=== PATIENT | female | born 1955 | race Caucasian/White ===

== ENCOUNTER 2025-01-11 14:08 | Emergency (ER) | payer MEDICARE, MEDICAID, SELFPAY ==
[2025-01-11] VITALS (14 sets, daily range): BP systolic 117–161; BP diastolic 40–64; PULSE 56–100; RESP 19–30; TEMP 36.4; O2SAT 92–100
--- NOTE | ~2025-01-11 | XR_ITS ---
EXAMINATION: XR chest 1V portable Exam Date/Time: 01/11/2025 14:20 CDT HISTORY: cough Comparison: None. RESULT: Lines, tubes, and devices: None. Lungs and pleura: Rightward rotation. Mild diffuse reticular opacities, particularly in the right jacque ng likely accentuated by rotation. Segmental peripheral right lower lung opacification. Cardiomediastinal silhouette: Normal. Other: No acute osseous or upper abdominal finding. IMPRESSION: Segmental left basilar atelectasis versus consolidation and/or prominent pericardial fat pad. Reviewed, dictated and finalized at location K. IMPRESSION: Segmental left basilar atelectasis versus consolidation and/or prominent perica rdial fat pad.
--- NOTE | 2025-01-11 14:22 | ECG_ITS ---
Test Date: 2025-01-11 14:50:35 Measurements Intervals [place] Rate: 61 P: 25 ME: 168 QRS: -27 QRSD: 91 T: 5 QT: 426 QTc: 432 Interpretive Statements SINUS RHYTHM LOW QRS VOLTAGE IN PRECORDIAL LEADS [QRS DEFLECTION < 1.0 mV IN CHEST LEADS] INCOMPLETE RIGHT BUNDLE BRANCH BLOCK [90+ ms QRS DURATION, TERMINAL R IN V1/V2, 40+ ms S IN I/aVL/V4/V5/V6] INFERIOR MYOCARDIAL INFARCTION , PROBABLY OLD [40+ ms Q WAVE AND/OR ST/T ABNORMALITY IN II/aVF] ANTEROSEPTAL MYOCARDIAL INFARCTION , OF INDETERMINATE AGE [40+ ms Q WAVE IN V1-V4] No previous ECG available for comparison Electronically Signed On 01-12-2025 11:14:53 CDT by Karsten Henley M.D.
--- NOTE | 2025-01-11 14:22 | ED.SOB ---
HPI - SOB/Dyspnea General Chief Complaint: Shortness of Breath/Dyspnea <Chiki Negro PA-C - Last Filed: 01/11/25 23:11> Stated Complaint: cough, weakness <Chiki Negro PA-C - Last Filed: 01/11/25 23:11> Time Seen by Provider: 01/11/25 14:10 <Chiki Negro PA-C - Last Filed: 01/11/25 23:11> Source: patient <ARLINE Rodney Last Filed: 01/11/25 23:11> Mode of arrival: ambulatory <Chiki Negro PA-C - Last Filed: 01/11/25 23:11> Limitations: no limitations <Chiki Negro PA-C - Last Filed: 01/11/25 23:11> History of Present Illness HPI Narrative: This is a 70-year-old female with PMH of ESRD on hemodialysis, COPD, CVA who presents to the ED via EMS from local long-term for chief complaint of new oxygen requirement overnight. They thought the patient required 2 L of oxygen last night due to shortness of breath. They also reported that patient has had trouble keeping anything down and has had a new cough. Patient is alert oriented x3, at her baseline. She does endorse a cough but states that she is not short of breath. [facility] staff mentioned patient having vomiting, however patient denies nausea or abdominal pain. States that she is currently asymptomatic and would like to go home if possible. States that she does hemodialysis Sunday and has not missed any days, with last session on Sunday. <Chiki Negro PA-C - Last Filed: 01/11/25 23:11> Related Data Allergies/Adverse Reactions: Allergies Allergy/AdvReac Type Severity Reaction Status Date / Time baclofen Allergy Unknown Unknown Verified 01/11/25 16:36 metformin Allergy Unknown Unknown Verified 01/11/25 16:36 <Chiki Negro PA-C - Last Filed: 01/11/25 23:11> Review of Systems Review of Systems: All systems as dictated in HPI <Chiki Negro PA-C - Last Filed: 01/11/25 23:11> Exam Narrative: GENERAL: Well-appearing, well-nourished, and in no acute distress. HEAD: Normocephalic, atraumatic. EYES: PERRLA and EOMI. ENT: Nares clear, no rhinorrhea or epistaxis. Mucous membranes moist. Oropharynx without tonsillar hypertrophy exudate or other lesions. NECK: Supple. No adenopathy or masses. CHEST: No respiratory distress. Saturating 94% room air. There are coarse breath sounds heard bilaterally. HEART: Regular rate and rhythm. No murmur heard. Normal peripheral pulses. ABDOMEN: Soft, nontender, nondistended, normal active bowel sounds. MSK: Normal range of motion. No edema. SKIN: Warm, dry, no rash. NEURO: Alert and oriented x4. No focal deficits. PSYCH: Normal mood and affect. <Chiki Negro PA-C - Last Filed: 01/11/25 23:11> Course INDUSTRIAL SPECIALIST/PA Physician Supervision Patient's HPI, Exam, and MDM were reviewed and I agreed with the workup and disposition done in the emergency department by the MLP. I was available for consultation, but was not directly involved with patient's care nor did I evaluate the patient. <Kip Bradshaw MD - Last Filed: 01/12/25 21:29> Reevaluation(s) Reevaluation #1: Patient remains stable. She is doing well after the hour long breathing treatment. Breath sounds are still quite course. She has a productive cough on re-evaluation with thick sputum. <Chiki Negro PA-C - Last Filed: 01/11/25 23:11> Date: 01/11/25 <Chiki Negro PA-C - Last Filed: 01/11/25 23:11> Time: 16:30 <Chiki Negro PA-C - Last Filed: 01/11/25 23:11> Vital Signs Vital signs: Vital Signs Temperature 36.4 C 01/11/25 14:09 Pulse Rate 64 01/11/25 14:09 Respiratory Rate 22 H 01/11/25 14:09 Blood Pressure 161/63 H 01/11/25 14:09 Pulse Oximetry 94 01/11/25 14:09 Oxygen Delivery Room Air 01/11/25 14:09 Temperature 36.4 C 01/11/25 14:09 Pulse Rate 83 01/11/25 17:11 Respiratory Rate 27 H 01/11/25 17:11 Blood Pressure 133/40 L 01/11/25 16:31 Pulse Oximetry 100 01/11/25 17:11 Oxygen Delivery Room Air 01/11/25 15:24 Fraction of Inspired Oxygen 21 01/11/25 15:24 <Chiki Negro PA-C - Last Filed: 01/11/25 23:11> Vital Signs Temperature 36.4 C 01/11/25 14:09 Pulse Rate 64 01/11/25 14:09 Respiratory Rate 22 H 01/11/25 14:09 Blood Pressure 161/63 H 01/11/25 14:09 Pulse Oximetry 94 01/11/25 14:09 Oxygen Delivery Room Air 01/11/25 14:09 Temperature 36.4 C 01/11/25 14:09 Pulse Rate 83 01/11/25 17:11 Respiratory Rate 27 H 01/11/25 17:11 Blood Pressure 133/40 L 01/11/25 16:31 Pulse Oximetry 100 01/11/25 17:11 Oxygen Delivery Room Air 01/11/25 15:24 Fraction of Inspired Oxygen 21 01/11/25 15:24 <Kip Bradshaw MD - Last Filed: 01/12/25 21:29> MDM - SOB/Dyspnea MDM Narrative Medical decision making narrative: This is a 70-year-old female presents to the ED from long-term for possible hypoxia and N/V. Vitals on arrival are normal. She is saturating well on room air. She is alert oriented x3 and at her baseline. On arrival she has no medical complaints. Lab work shows normal white count on CBC. CMP shows chronic findings with ESRD. Viral swabs positive for RSV. Chest x-ray: IMPRESSION: Segmental left basilar atelectasis versus consolidation and/or prominent pericardial fat pad.. Presentation consistent with RSV and potential is COPD exacerbation. She is not hypoxic. She is feeling improved after nebulizer. Spoke with hospitalist INDUSTRIAL SPECIALIST, Isabela who does not recommend admission to the hospital. She is recommending that patient be discharged home with steroids. Patient does have stable vital signs at this time. With her medical history I think she does pose risk of needing to return so strict return precautions were given to the patient. She is understanding and agreeable with plan for discharge at this time. We will try Medrol Dosepak and antibiotics at home for COPD exacerbation. Patient will be discharged in stable condition. Supportive measures discussed and return precautions given. Patient is understanding and agreeable with plan for discharge with PCP follow-up. <Chiki Negro PA-C - Last Filed: 01/11/25 23:11> Lab Data Result diagrams: 01/11/25 14:58 01/11/25 14:58 <Chiki Negro PA-C - Last Filed: 01/11/25 23:11> Labs: Lab Results 01/11/25 Range/Units 14:58 WBC 6.9 (4.5-10.0) K/mm3 RBC 3.66 L (4.2-5.4) M/mm3 Hgb 11.8 L (12.0-15.0) g/dL Hct 36.4 L (37.0-47.0) % MCV 99.5 (80-100) fl MCH 32.2 (26-34) pg MCHC 32.4 (32-36) g/dl RDW 13.6 (11.5-14.5) % Plt Count 139 L (150-375) k/mm3 MPV 10.8 H (7.4-10.4) fl Immature Gran % (Auto) 0.3 (0-0.5) % Neut % (Auto) 45.5 (45.5-73.1) % Lymph % (Auto) 41.1 (18.3-44.2) % Republic % (Auto) 10.0 H (2.6-8.5) % Eos % (Auto) 2.5 (0-4.4) % Baso % (Auto) 0.6 (0.2-1.2) % Lymph # (Auto) 2.83 (0.9-3.2) K/mm3 Republic # (Auto) 0.7 H (0.1-0.6) K/mm3 Eos # (Auto) 0.2 (0-0.3) K/mm3 Baso # (Auto) 0.0 (0.0-0.1) K/mm3 Abs Immat Gran (auto) 0.02 (0.00-0.031) K/mm3 Absolute Neuts (auto) 3.1 (1.3-6.7) K/mm3 Absolute Nucleated RBC 0.000 (0.0-0.012) K/mm3 Nucleated RBC % 0.0 (0.0-0.2) % PT 15.9 H (11.1-14.7) Seconds INR 1.2 APTT 40.4 H (22.3-36.8) Seconds Sodium 141 (137-145) mmol/L Potassium 3.7 (3.4-5.0) mmol/L Chloride 97 L (98-107) mmol/L Carbon Dioxide 34 H (22-30) mmol/L Anion Gap 10 (4-12) mmol/L BUN 43 H (7-17) mg/dL Creatinine 5.07 H (0.7-1.0) mg/dL Estim Creat Clear Calc 10 ml/min Estimated GFR 8 L (59 - ) Glucose 162 H (65-110) mg/dL Calcium 8.8 (8.4-10.2) mg/dL Total Bilirubin 0.6 (0.2-1.3) mg/dL AST 23 (14-36) U/L ALT 19 (6-35) U/L Alkaline Phosphatase 106 (38-126) U/L Total Protein 7.0 (6.3-8.2) g/dL Albumin 3.8 (3.5-5.1) g/dL Influenza A (RT-PCR) Negative (Negative) Influenza B (RT-PCR) Negative (Negative) RSV (RT-PCR) Positive A (Negative) SARS-CoV-2 RNA (RT-PCR) Negative (Negative) <Chiki Negro PA-C - Last Filed: 01/11/25 23:11> Lab Results 01/11/25 Range/Units 14:58 WBC 6.9 (4.5-10.0) K/mm3 RBC 3.66 L (4.2-5.4) M/mm3 Hgb 11.8 L (12.0-15.0) g/dL Hct 36.4 L (37.0-47.0) % MCV 99.5 (80-100) fl MCH 32.2 (26-34) pg MCHC 32.4 (32-36) g/dl RDW 13.6 (11.5-14.5) % Plt Count 139 L (150-375) k/mm3 MPV 10.8 H (7.4-10.4) fl Immature Gran % (Auto) 0.3 (0-0.5) % Neut % (Auto) 45.5 (45.5-73.1) % Lymph % (Auto) 41.1 (18.3-44.2) % Republic % (Auto) 10.0 H (2.6-8.5) % Eos % (Auto) 2.5 (0-4.4) % Baso % (Auto) 0.6 (0.2-1.2) % Lymph # (Auto) 2.83 (0.9-3.2) K/mm3 Republic # (Auto) 0.7 H (0.1-0.6) K/mm3 Eos # (Auto) 0.2 (0-0.3) K/mm3 Baso # (Auto) 0.0 (0.0-0.1) K/mm3 Abs Immat Gran (auto) 0.02 (0.00-0.031) K/mm3 Absolute Neuts (auto) 3.1 (1.3-6.7) K/mm3 Absolute Nucleated RBC 0.000 (0.0-0.012) K/mm3 Nucleated RBC % 0.0 (0.0-0.2) % PT 15.9 H (11.1-14.7) Seconds INR 1.2 APTT 40.4 H (22.3-36.8) Seconds Sodium 141 (137-145) mmol/L Potassium 3.7 (3.4-5.0) mmol/L Chloride 97 L (98-107) mmol/L Carbon Dioxide 34 H (22-30) mmol/L Anion Gap 10 (4-12) mmol/L BUN 43 H (7-17) mg/dL Creatinine 5.07 H (0.7-1.0) mg/dL Estim Creat Clear Calc 10 ml/min Estimated GFR 8 L (59 - ) Glucose 162 H (65-110) mg/dL Calcium 8.8 (8.4-10.2) mg/dL Total Bilirubin 0.6 (0.2-1.3) mg/dL AST 23 (14-36) U/L ALT 19 (6-35) U/L Alkaline Phosphatase 106 (38-126) U/L Total Protein 7.0 (6.3-8.2) g/dL Albumin 3.8 (3.5-5.1) g/dL Influenza A (RT-PCR) Negative (Negative) Influenza B (RT-PCR) Negative (Negative) RSV (RT-PCR) Positive A (Negative) SARS-CoV-2 RNA (RT-PCR) Negative (Negative) <Kip Bradshaw MD - Last Filed: 01/12/25 21:29> Discharge Plan Discharge Clinical Impression: Respiratory syncytial virus (RSV), Asthma exacerbation in COPD <Chiki Negro PA-C - Last Filed: 01/11/25 23:11> Patient Disposition: NH Mcfp/Asst Living <Chiki Negro PA-C - Last Filed: 01/11/25 23:11> Condition: Stable <Chiki Negro PA-C - Last Filed: 01/11/25 23:11> Instructions: Antibiotic Form <Chiki Negro PA-C - Last Filed: 01/11/25 23:11> Additional Instructions: Exam today shows evidence of RSV. This is likely causing COPD exacerbation. Antibiotics and steroids are prescribed. If you have any new or worsening symptoms please return to the ER for further evaluation. <Chiki Negro PA-C - Last Filed: 01/11/25 23:11> Patient Language: Cypriot <Chiki Negro PA-C - Last Filed: 01/11/25 23:11> Prescriptions: New amoxicillin-pot clavulanate 875-125 mg tablet 1 tablet PO Q12H Qty: 14 0RF doxycycline hyclate 100 mg capsule 100 mg PO BID 7 Days Qty: 14 0RF methylprednisolone [Medrol (Christopher)] 4 mg tablets,dose pack See Rx Instructions .ROUTE .COMPLEX Qty: 21 0RF Rx Instructions: for 6 days albuterol sulfate 90 mcg/actuation aerosol powdr breath activated 2 inh inhalation Q6H PRN (Reason: shortness of breath or wheezing) Qty: 1 0RF <Chiki Negro PA-C - Last Filed: 01/11/25 23:11> Follow-up/Referrals: Ampadu,MD Jamel [Primary Care Provider] - <Chiki Negro PA-C - Last Filed: 01/11/25 23:11> Stand Alone Forms: Shelter Discharge <Chiki Negro PA-C - Last Filed: 01/11/25 23:11> Time of Disposition: 16:49 <Chiki Negro PA-C - Last Filed: 01/11/25 23:11> 16:49 <Kip Bradshaw MD - Last Filed: 01/12/25 21:29>
--- OUTSIDE RECORDS SUMMARY | 2025-01-11 14:37 | XMS_ITS | Clinical Summary ---
Author Organization [facility] Address [address] [place] [address] Phone Care Team Providers Care Solo Musician Name Role Phone Provider, None Primary Care Provider Unavailabl e Allergies No known active allergies Medications Insulin Syringe-Needle U-100 (INSULIN SYRINGE .5CC/30GX1/2 ) 30G X 1/2 0.5 ML [facility] [place] Active insulin glargine (LANTUS) 100 UNIT/ML Solution Active ACCU-CHEK SMARTVIEW Strip 6 Active ACCU-CHEK FASTCLIX LANCETS Misc 6 Active Blood Glucose Calibration (ACCU-CHEK SMARTVIEW CONTROL) Liquid 6 Active Alcohol Swabs (B-D SINGLE USE SWABS REGULAR) Pads 6 Active albuterol 108 (90 Base) MCG/ACT Aerosol Solution take by inhalation every 4 hours as needed. Active ascorbic acid 500 MG Tablet Take 500 mg by mouth daily. Active atorvastatin (LIPITOR) 40 MG Tablet Take 40 mg by mouth daily. Active Calcium Carbonate (CALCIUM 600 PO) Take by mouth. Activ e cloNIDine (CATAPRES) 0.1 MG Tablet Take 0.1 mg by mouth daily. Active apixaban (Eliquis) 2.5 MG Tablet Take 2.5 mg by mouth 2 times daily. Active gabapentin (NEURONTIN) 100 MG Capsule Take 100 mg by mouth 3 times daily. Active hydrALAZINE 25 MG Tablet Take 25 mg by mouth daily. Active loratadine (CLARITIN) 10 MG Tablet Take 10 mg by mouth daily. Active Insulin Aspart (NovoLOG) 100 UNIT/ML Solution by Subcutaneous route 3 times daily (after meals). Sliding scale Active pantoprazole (PROTONIX) 40 MG Tablet Delayed Response Take 40 mg by mouth daily. Active traMADol (ULTRAM) 50 MG Tablet Take 50 mg by mouth every 6 hours as needed. Active Zinc 50 MG Capsule Take by mouth. Activ e Active Problems Problem Noted Date Diagnosed Date Essential hypertension 01/12/2016 Pure hypercholesterolemia 01/12/2016 Osteoarthritis of multiple joints 01/12/2016 Physical exam 01/12/2016 Colon cancer screening 01/12/2016 Breast cancer screening 01/12/2016 Type 2 diabetes mellitus with diabetic neuropath y Dermatophytosis of nail Overview (09/16/2015): R HALLUX Pain in limb Immunizations Immunization Administration Dates Next Due Covid-19, Mrna, Lnp-s, Pf, 30 Mcg/0.3 Ml Dose (P fizer) 12/10/2020,11/19/2020 Influenza Vaccine,unspecified Formulation 2019 Influenza, High-dose, Quadrivalent 08/15/2022 Pneumococcal Vaccine Adult - 23 Valent 2 Td, Unspecified Formulation 11/05/2013 Zoster Vaccine, live 11/05/2013 Family History Medical History Relation Name Comments Diabetes Brother Chronic Lung Disease Daughter ARDS High Cholesterol Maternal Grandmother Alzheimer's Disease Mother Relation Name Status Comments Brother Daughter Father Maternal Grandmother Mother Social History Tobacco Use Types Packs/Day Years Used Date Smoking Tobacco: Former Cigarettes 2 30 0 02/28/1983 - 02/28/2013 Smokeless Tobacco: Never Alcohol Use Standard Drinks/Week Comments No 0 (1 standard drink = 0.6 oz pur e alcohol) Rarely Sexually Active Control Partners Comments Never Comments No Sex and Gender Information Value Date Recorded Sex Assigned at Not on file Legal Sex Female 10:34 PM CDT Gender Identity Not on file Sexual Orientation Not on file Last Filed Vital Signs Vital Sign Reading Time Taken Comments Blood Pressure 96/43 07/07/2024 3:45 PM CDT Pulse 44 07/07/2024 4:45 PM CDT Temperature 35.7 C (96.2 F) 07/07/2024 11:07 AM CDT Respiratory Rate 10 07/07/2024 3:4 5 PM CDT Oxygen Saturation 100% 07/07/2024 4:45 PM CDT Inhaled Oxygen Concentration - - Weight 91.1 kg (200 lb 13.4 oz) 024 11:07 AM CDT Height 160 cm (5' 3 ) 07/07/2024 11:07 AM CDT Body Mass Index 35.58 07/07/2024 11:07 AM CDT Plan of Treatment Health Maintenance Due Date Last Done Comments DEXA Bone Density 1955 Diabetes: Eye Exam 1955 Diabetes: Foot Exam 1955 Hepatitis C Virus (HCV) Screening 1955 TdaP Immunization 1955 Cologuard 2003 Respiratory Syncytial Virus (RSV) Immunization (Adult) (1 - Risk 60-74 years 1-dose series) 2013 Zoster Immunization (2 of 3) 12/31/2013 11/05/2013 Mammogram 08/08/2019 08/08/2018, 02/08/2016 Immunochemical Fecal Occult Blood 02/02/2023 02/02/2022 Diabetes: Hemoglobin A1c 06/02/2024 024, 06/23/2021, 11/22/2019, Additional history exists Influenza Immunization (#1) 07/06/202408/05, 09/10/2022, 08/15/2022, Additional history exists SARS-COV-2 Immunization ( season) 2024 09/06/2023, 09/06/2023, 03/16/2023, Additional history exists Diabetes: Nephropathy Screening 07/07/2025 07/07/2024, 01/12/2016 Colonoscopy 09/05/2028 09/05/2018, 02/29/2016 Colorectal Cancer Screening 09/05/2028 09/05/2018, 02/29/2016 DTaP/Tdap/Td Immunization Discontinued 11/05/2013 Lung Cancer Screening Discontinued 03/26/2022, 021 Pneumococcal Immunization (50+ years) Completed 08/08/2023, 05/11/2022, 11/04/2021, Additional history exists Pneumococcal Immunization Combined Discontinued 08/08/2023, 05/11/2022, 11/04/2021, Additional history exists Hepatitis B Immunization Aged Out No longer eligible based on patient's age to complete this topic Meningococcal Immunization (ACWY) Aged Out No longer eligible based on patient's age to complete this topic Rotavirus Immunization Aged Out No lo nger eligible based on patient's age to complete this topic Procedures Procedure Name Priority Date/Time Associated Diagnosis Comments CMP (COMPREHENSIVE METABOLIC PANEL) STAT 07/07/2024 11:05 AM CDT REENA SCREENING BILATERAL DIGITAL W CAD Routine 02/08/2016 11:32 AM CDT Breast cancer screening HEMOGLOBIN A1C W/ ESTIMATED GLUCOSE Today 01/12/2016 10:51 AM ASBESTOS SIDING INSTALLER Type 2 diabetes mellitus with diabetic neuropathy (HCC) from Last 3 Months or Most Recently Relevant to Health Maintenance Results * (ABNORMAL) Comprehensive Metabolic Panel (CMP) (07/07/2024 11:05 AM CDT) SODIUM 140 136 - 145 mmol/L 07/07/2024 11:47 AM CDT [facility] POTASSIUM 4.2 3.5 - 5.1 mmol/L 07/07/2024 11:47 AM CDT [facility] CHLORIDE 98 98 - 107 mmol/L 07/07/2024 11:47 AM CDT [facility] CO2, VENOUS 30 22 - 30 mmol/L 07/07/2024 11:47 AM CDT [facility] ANION GAP 16.2 <18.0 mmol/L 07/07/2024 11:47 AM CDT [facility] GLUCOSE 170(H) 70 - 99 mg/dL 07/07/2024 11:47 AM CDT [facility] BUN 47(H) 10 - 20 mg/dL 07/07/2024 11:47 AM CDT [facility] CREATININE, BLOOD 6.50(H) 0.60 - 1.00 mg/dL 07/07/2024 11:47 AM CDT [facility] BUN/CREATININE RATIO 7(L) 12 - 20 ratio 07/07/2024 11:47 AM CDT [facility] TOTAL PROTEIN 6.1(L) 6.3 - 8.2 g/dL 07/07/2024 11:47 AM T [facility] ALBUMIN 3.2(L) 3.5 - 5.0 g/dL 07/07/2024 11:47 AM [facility] A/G RATIO 1.1 1.0 - 2.2 07/07/2024 11:47 AM CDT [facility] CALCIUM 8.7 8.7 - 10.5 mg/dL 07/07/2024 11:47 AM T [facility] T BILI 0.4 0.2 - 1.2 mg/dL 07/07/2024 11:47 AM T [facility] SGOT (AST) 9 5 - 34 U/L 07/07/2024 11:47 AM [facility] SGPT (ALT) 9 0 - 55 U/L 07/07/2024 11:47 AM CDT [facility] ALKALINE PHOSPHATASE 91 40 - 150 U/L 07/07/2024 11:47 AM T [facility] GFR, ESTIMATED 6(L) >=60 07/07/2024 11:47 AM T [facility] Comment: Creatinine Clearance is the preferred criteria for selecting drug dose adjustments in renally impaired patients. The GFR is provided as additional pertinent clinical information. GFR is reported in mL/min/1.73 sq m. Calculation based on the Chronic Kidney Disease Epidemiology Collaboration (CKD- EPI) equation refit without adjustment for race. GFR, EST. 8(L) >=60 024 11:47 AM T [facility] GFR, EST. NONAFRICAN 6(L) >=60 07/07/2024 11:47 AM [facility] Blood Venipuncture / Unknown 07/07/2024 11:05 AM CDT 07/07/2024 11:24 AM CDT us Rolf Warren MD CHEMISTRY ORDERABLES Final Resul t [facility] [address] [place] [address] * REENA SCREENING BILATERAL DIGITAL W CAD (02/08/2016 11:32 AM CDT) Anatomical Region Laterality Modality breast Bilateral Mammography 02/08/2016 11:0 8 AM CDT Narrative 02/11/2016 5:36 PM CDT - REENA SCREENING BILATERAL DIGITAL W CAD BILATERAL DIGITAL SCREENING MAMMOGRAM WITH CAD WITH MEDIOLATERAL OBLIQUE CRANIOCAUDAL: 02/08/2016 The study was acquired using digital technology and interpreted from soft copy. Current study was also evaluated with ICAD version 7.2. CLINICAL: Routine screening. Patient has no complaints. No personal history of cancer. No family history of breast cancer. COMPARISONS: Comparison is made to exam dated: 04/08/2014 [facility]. BREAST TISSUE:There are scattered fibroglandular densities in both breasts. FINDINGS: No significant masses, calcifications, or other findings are seen in either breast. There has been no significant interval change. IMPRESSION: BI-RAD 1 NEGATIVE There is no mammographic evidence of malignancy. A 1 year screening mammogram is recommended. The patient has been or will be contacted. The patient will be entered into a reminder system with a target due date of 1 year for her next screening exam. Electronically signed by: Asael Villarreal M.D. nc/hernesto:02/11/2016 15:43:36 Ampoule Inspector: Jackie Lewis, [facility] letter sent: Normal Exam Reading location: [facility] BI-RADS: 1 Negative Procedure Note Asael Villarreal MD - 02/11/2016 - REENA SCREENING BILATERAL DIGITAL W CAD BILATERAL DIGITAL SCREENING MAMMOGRAM WITH CAD WITH MEDIOLATERAL OBLIQUE CRANIOCAUDAL: 02/08/2016 The study was acquired using digital technology and interpreted from soft copy. Current study was also evaluated with ICAD version 7.2. CLINICAL: Routine screening. Patient has no complaints. No personal history of cancer. No family history of breast cancer. COMPARISONS: Comparison is made to exam dated: 04/08/2014 [facility]. BREAST TISSUE:There are scattered fibroglandular densities in both breasts. FINDINGS: No significant masses, calcifications, or other findings are seen in either breast. There has been no significant interval change. IMPRESSION: BI-RAD 1 NEGATIVE There is no mammographic evidence of malignancy. A 1 year screening mammogram is recommended. The patient has been or will be contacted. The patient will be entered into a reminder system with a target due date of 1 year for her next screening exam. Electronically signed by: Asael zuñiga/hernesto:02/11/2016 15:43:36 Ampoule Inspector: Jackie Lewis, [facility] letter sent: Normal Exam Reading location: [facility] BI-RADS: 1 Negative German Lee MD IMG MAMMO ORDERABLES Final Re sult * (ABNORMAL) HEMOGLOBIN A1C W/ ESTIMATED GLUCOSE (01/12/2016 10:51 AM ASBESTOS SIDING INSTALLER) HGB-A1C 8.5(H) 4.4 - 6.4 % 01/12/2016 2:37 PM ASBESTOS SIDING INSTALLER [facility] Est Average Glucose 197.3 mg/dL 01/12/2016 2:37 PM ASBESTOS SIDING INSTALLER [facility] Blood specimen (specimen) Venipuncture / Unknown 01/12/2016 10:51 AM ASBESTOS SIDING INSTALLER 01/12/2016 10:55 AM ASBESTOS SIDING INSTALLER Narrative [facility] - 01/12/2016 2:37 PM ASBESTOS SIDING INSTALLER HEMOGLOBIN A1C: DIABETIC PATIENTS: WELL-CONTROLLED: 6.2 - 7.0 INTERMEDIATE WELL-CONTROLLED: 7.0 - 9.0 POORLY-CONTROLLED: >9.0 German Lee MD CHEMISTRY ORDERABLES Final Re sult [facility] [place] [address] from Last 3 Months or Most Recently Relevant to Health [place] [address] [place] [address] MEDICARE MEDICAID [place] Advance Directives Documents on File Type Date Recorded Patient Building Energy Consultant Expl anation POLST/[place] DNR 07/07/2024 3:15 PM POLST, 12/10/2023 Care Teams Solo Musician Relationship Specialty Start Date End Date Provider, None [place] PCP - General 07/07/24
--- OUTSIDE RECORDS SUMMARY | 2025-01-11 14:38 | XMS_ITS | Continuity of Care Document ---
Author Organization [facility] Address [address] [place] [address] Phone Care Team Providers Care Law Professor Name Role Phone Ciro MATHUR, Aguila Unavailable Unavailabl e Allergies, Adverse Reactions, Alerts Substance Reaction Status Criticality METFORMIN HCL Unknown Active No Information Medications Medication Instructions Dosage Effective Dates (start - stop) Status Comments ascorbic acid (vitamin C) 500 mg tablet - Active atorvastatin 40 mg tablet take 1 tablet by oral route every day 40 MG - Active clonidine HCl 0.1 mg tablet take 1 tablet by oral route 2 times every day as needed 0.1 MG - Active Eliquis 2.5 mg tablet take 1 tablet by o ral route 2 times every day 2.5 MG - Active gabapentin 100 mg capsule take 1 capsule by oral route every day 100 MG - Active hydralazine 25 mg tablet take 1 tablet by oral route 2 times every day with food 25 MG - Active Lantus U-100 Insulin 100 unit/mL subcutaneous solution inject by subcutaneous route as per insulin protocol 0.00 - Active loratadine 10 mg tablet take 1 tablet by oral route every day 10 MG - Active Novolog U-100 Insulin aspart 100 unit/mL subcutaneous solution inject by subcutaneous route per prescriber's instructions. Insulin dosing requires individualization. 0.00 - Active pantoprazole 40 mg tablet,delayed release take 1 tablet by oral route every day 40 MG - Active tramadol 50 mg tablet take 1 tablet by o ral route every 6 hours as needed as needed 50 MG - Active zinc 50 mg tablet - Active Procedures Procedure Date Intro cath dialysis circuit Mod sed same phys/qhp 5/>yrs INTRO CATH DIALYSIS CIRCUIT Radiation Exposure Documented To Be Coded Intro cath dialysis circuit Mod sed same phys/qhp 5/>yrs CONTRAST, 300/ML, PER ML INTRO CATH DIALYSIS CIRCUIT Radiation Exposure Documented To Be Coded Intro cath dialysis circuit Intro cath dialysis circuit CONTRAST, 300/ML, PER ML MOD SED BY OR SUP BY PHYSICIAN INTRO CATH DIALYSIS CIRCUIT Radiation Exposure Documented To Be Coded Intro cath dialysis circuit Mod sed same phys/qhp 5/>yrs Intro cath dialysis circuit Mod sed same phys/qhp 5/>yrs Intro cath dialysis circuit Mod sed same phys/qhp 5/>yrs MOD SED BY OR SUP BY PHYSICIAN INTRO CATH DIALYSIS CIRCUIT To Be Coded Intro cath dialysis circuit Mod sed same phys/qhp 5/>yrs REPLACE TUNNELED CV CATH FLUORO GUIDE CENTRAL VENOUS ACCESS DEVIC E Sterile Barrier Technique Followed To Be Coded Replace tunneled cv cath Fluoroguide for vein device Mod sed same phys/qhp 5/>yrs Cath impl vasc access portal Replace tunneled cv cath Fluoroguide for vein device Mod sed same phys/qhp 5/>yrs Replace tunneled cv cath Fluoroguide for vein device Mod sed same phys/qhp 5/>yrs CONTRAST, 300/ML, PER ML MOD SED BY OR SUP BY PHYSICIAN REPLACE TUNNELED CV CATH INTRO CATH SVC/IVC Sterile Barrier Technique Followed Radiation Exposure Documented To Be Coded Replace tunneled cv cath Fluoroguide for vein device Mod sed same phys/qhp 5/>yrs Cath impl vasc access portal Advance Directives Directive Yes / No Effective Date File Name No Information Encounters Encounter Description Practice Location Reason(s) For Visit Diagnoses Date Provider Providers Copied on Encounter [facility], [address] [place], [place], [id number], [place] tel:[phone] [facility] No Information 5 Tanner Aguila . [address] [place], [place], [id number] , [place]. tel: [phone] [facility], [address], [place], [id number], [place] tel:[phone] [facility] End stage renal diseaseCompression of VeinStricture of Artery 5 Tanner Aguila . [address], [place], [id number] , [place]. tel:[phone] Referring Provider: Caden Lucero, [address] [facility] [address] [facility], [place], [address]. tel:[phone] [facility], [address], [place], [id number], [place] tel:[phone] [facility] Compression of VeinStricture of ArteryEnd stage renal disease 5 Tanner Aguila . [address], [place], [id number] , [place]. tel:[phone] Referring Provider: Caden Lucero, [address] [facility] [address] [facility], [place], [address]. tel:[phone] [facility], [address] [place], [place], [id number], [place] tel:[phone] [facility] Compression of VeinEnd stage renal disease 4 Tanner Aguila . [address], [place], [id number] , [place]. tel:[phone] Referring Provider: Caden Lucero, [address] [facility] [address], [place], [address]. tel:[phone] [facility], [address] [place] [address], [id number], [place] tel:[phone] [facility] Compression of VeinEnd stage renal disease 4 Tanner Aguila . [address] [place] [address], [id number] , [place]. tel:[phone] Referring Provider: Caden Lucero, [address] [place] [address] [address] [facility], [place], [address]. tel:[phone] [facility], [address] [place] [address], [id number], tel:[phone] [facility] Compression of VeinEnd stage renal disease 4 Mireles Lilia. [address], [place], [id number] , [place]. tel: [phone] Referring Provider: Caden Lucero, [id number] [place] [address] [address] [facility], [place], [address]. tel:[phone] [facility], [address] [place] [address], [id number], tel:[phone] [facility] Compression of VeinEnd stage renal disease 4 Mireles Lilia. [address] [place] [address], [id number] , [place]. tel: [phone] Referring Provider: Caden Lucero, [id number] [place] [address], [place], [address]. tel:[phone] [facility], [address] [place] [address], [id number], [place] tel:[phone] [facility] Compression of VeinEnd stage renal disease 4 Mireles Lilia. [address] [place] [address], [id number] , [place]. tel: [phone] Referring Provider: Caden Lucero, [id number] [place] [address] [address] [facility], [place], [address]. tel:[phone] [facility], [address] [place] [address], [id number], [place] tel:[phone] [facility] Compression of VeinEnd stage renal disease 4 Mireles Lilia. [address] [place] [address], [id number] , . tel: [phone] Referring Provider: Caden Lucero, [id number] [place] [address] [address] [facility], [place], [address]. tel:[phone] [facility], [address] [place] [address], [id number], tel:[phone] [facility] 2 Mireles Lilia. [address] [place], [place], [id number] , . tel:[phone] Referring Provider: Caden Lucero, [address] [place] [address], [place], [address]. tel:[phone] [facility], [address] [place] [address], [id number], tel:[phone] [facility] 2 Mireles Lilia. [address] [place] [address], [id number] , . tel:[phone] Referring Provider: Caden Lucero, [address] [place] [address], [place], [address]. tel:[phone] [facility], [address] [place] [address], [id number], tel:[phone] [facility] Apr- [address] [place], [address], [place]. tel:[phone] Referring Provider: Caden Lucero, [address] [place] [address], [place], [address]. tel:[phone] [facility], [address] [place] [address], [id number], tel:[phone] [facility] [address] [place], [address], [place]. tel:[phone] Referring Provider: Caden Lucero, [address] [place] [address], [place], [place], [facility]. tel:[phone] As per patient privacy policy some of the clinical information may not be visible. Family History Family Member Type Diagnosis Age At Onset No Information Payers Payer name Insurance type Covered democrat ID Authorterea ana(s) Medicare [place] [id number] Medicaid [place] [id number] Social History Type Description Quantity Date Captured Comments Sex Female Smoking Status No Information Sexual Orientation Straight or heterosexual Gender Identity Female Chief Complaint And Reason For Visit No Information Reason For Referral Reason For Referral No Information Plan Of Treatment Date Type Action Status Appointment Deisy Elricia // [facility]O AVF 5 Month F/u BOOKED Appointment Deisy Elricia // AUGUSTO AVF 6 Month F/u BOOKED Future Order: Radiology Order Up per Body Flouroscopy ([id number]), Ordered on: Ordered Future Order: Radiology Order Up per Body Flouroscopy ([id number]), Ordered on: Ordered Future Order: Radiology Order Up per Body Flouroscopy ([id number]), Ordered on: Ordered Future Order: Radiology Order Up per Body Flouroscopy ([id number]), Ordered on: Ordered Future Order: Radiology Order Up per Body Flouroscopy ([id number]), Ordered on: Ordered Future Order: Radiology Order Up per Body Flouroscopy ([id number]), Ordered on: Ordered History Of Present Illness Encounter Date Complaint History Of Prese nt Illness No Information Functional Status Date Functional Assessmen t No Information Instructions Date Instruction Additional Infor mation No Information Assessments Type Assessment Date No Information Patient Care Teams Name Effective Dates (start - stop) Status Members No Information
--- OUTSIDE RECORDS SUMMARY | 2025-01-11 14:38 | XMS_ITS | Encounter Summary ---
Author Organization [facility] Healthcare Address [address] [place] [address] Care Team Providers Care Supervisor Cigar Processing Name Role Phone Jose Juan Madrigal MD Primary Care Provider [phone] Pedro Monroe MD Unavailable [phone] Tonya Barahona RN Unavailable [phone] Caden Nuñez MD Unavailable [phone] Luis Barney MD Unavailable [phone] Encounter Details Date Type Department Care Team (Late st Contact Info) Description 04/24/2019 Telephone [facility] Physical Medicine and Rehabilitation [address] [place] [address] Brian Bright RN Social History Tobacco Use Types Packs/Day Years Used Date Smoking Tobacco: Every Day Cigarettes 3 25 Started: 02/16/1989; Last attempted to quit: 02/16/2014 Smokeless Tobacco: Never Comments:DOES VAPE 6MG CARTR IDGE Alcohol Use Standard Drinks/Week Comments Not Currently 0 (1 standard drink = 0.6 oz pur e alcohol) Comments No Sex and Gender Information Value Date Recorded Sex Assigned at Not on file Legal Sex Female 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 Gender Identity Female 01/17/2024 1:34 PM CDT Sexual Orientation Straight 01/17/2024 1: 34 PM CDT documented as of this encounter Last Filed Vital Signs Vital Sign Reading Time Taken Comments Blood Pressure - - Pulse - - Temperature - - Respiratory Rate - - Oxygen Saturation - - Inhaled Oxygen Concentration - - Weight 91.2 kg (201 lb) 04/24/2019 11:17 AM CDT Height 160 cm (5' 3 ) 04/24/2019 11:17 AM CDT Body Mass Index 35.61 04/24/2019 11:17 AM CDT documented in this encounter Miscellaneous Notes * Pre-Admission Screening - Brian Bright RN - 04/24/2019 12:18 PM CDT [facility] Physical Medicine and Rehabilitation Preadmission Screening Reason for Consult: Nora El is a 64 y.o. female with a medical diagnosis of Slurred Speech and Rehab Diagnosis: CVA--Left Amanda whose probable impairment code for inpatient rehabilitation is: Impairment Code Group: Stroke Stroke: Right Body Involvement (Left Brain) The following information was gathered for consideration and maintenance in the medical record to substantiate medical necessity for IRF level of care. Patient is currently at [facility]; Room 2626-1;phone# . The patient is being referred and recommended by Dr OSBORN to be assessed both medically and functionally in regard to their premorbid functional capacity to determine whether they can benefit from a rehabilitation level of care offered by our facility. The following information is regarding the medical complexity and clinical risk factors that need to be considered for the appropriate management of the patient's care and recovery. RECOMMENDATIONS / PLAN: Goals for admission:To get strong enough to get back home and care for herself as much as possible. Likelihood of reaching these goals: Medical Prognosis: Medical Prognosis appears good to recover based on co- morbidites and on going medical issues such as dyphagia, uncontorlled blood pressures and diabetes Functional Prognosis: Fucntional Prognosis appears good to recover to a minimum to contact guard assist of self care management and mobility at the wheelchair level Therapies required to achieve goals:The patient will benefit from integrated coordination of care from the following interdisciplinary services: Medical Supervision, 24 hours Rehabilitation Nursing, Physical Therapy, Occupational Therapy, Case Management, Speech Therapy, Therapeutic Recreation, Respiratory Therapy, Machine Loader, Social Work Frequency and duration of therapies expect to be:Expected intensity and frequency of participation in the interdisciplinary rehab program is: 3 hours per day except Sunday. Expected intensity and frequency of Physical Therapy (PT): 1.5 hours per day over 5-7 days for the duration of length of stay Expected intensity and frequency of Occupational Therapy (OT): 1.5 hours per day over 5-7 days per week for the duration of length of stay Expected intensity and frequency of Speech Therapy (OIL AND GAS RECRUITER): 1 hour per day per day over 5-7 days per week for the duration of length of stay Expected level of improvement is: very good Expected level of improvement at discharge is: CGA Strengths for achieving goals: Strengths: Able to tolerate intensive inpatient rehab program, Good premorbid medical status, Good family/social support, Living in the community premorbidly, Motivated, Good premorbid functional status Barriers to achieving goals: Barriers: Comorbidities, Ability to acquire knowledge(Ongoing Medical Issues Such As: Flaccid RightDominent Side; Inability to swallow requiring an alternative method of nutrition with a PEG tube; Uncontorlled Diabetes, Uncontrolled Hypertension; ACute Renal Failure, Hyponatremia) Expected length of stay: Estimated Length of Stay: 21 days When medically stable, anticipated disposition: Anticipated destination post discharge from inpatient rehab: community discharge with assist Anticipated needed services post discharge from inpatient rehab: home health nursing, home health therapy Therapy needed: Home health aide, PT - home health, OT - home health, OIL AND GAS RECRUITER - home health, Nurse visit Information regarding the rehab process including risks/benefits and financial issues were discussed with the patient and/or family and they have agreed to accept rehabilitation risks and benefits. Payor Source: Primary: [employer]; policy# [id number]; phone# ; auth # [id number] Case discussed with Dr Pedro Monroe on 04/23/2019 1400 and updated 04/24/2019 at 1200. Appropriateness for admission to the Inpatient Rehab Facility: yes The Pre-admission screen is an assessment of the patient's medical and functional status and has been reviewed by a rehab physician. It has been determined by the rehab physician that this patient will benefit from a comprehensive inpatient rehab admission to meet the identified goals and manage ongoing medical issues. The physician will provide documentation that supports an inpatient rehab admission including real and potential complications for which the patient is at risk with a plan to manage and avoid those risks HISTORY: Past Medical History: Past Medical History: Diagnosis Date ??? Cataracts, bilateral H&P ??? Colon polyp ??? Diabetes mellitus ([facility]) Diabetes mellitus; Comments: [facility] 04/06/2016 - ??? Hypercholesterolemia High cholesterol; Comments: [facility] 04/06/2016 - ??? Hypertension Hypertension ??? Type 2 diabetes mellitus (CMS/HCC) Past Surgical History: Past Surgical History: Procedure Laterality Date ??? CATARACT EXTRACTION Right Cataract extraction ??? COLONOSCOPY 02/29/2016 ??? OTHER SURGICAL HISTORY TUBAL LIGATION ??? POLYPECTOMY ??? TUBAL LIGATION H&P Social History: Social History Socioeconomic History ??? Marital status: Spouse name: None ??? Number of children: None ??? Years of education: None ??? Highest education level: None Occupational History ??? None Social Needs ??? Financial resource strain: None ??? Food insecurity: Worry: None Inability: None ??? Transportation needs: Medical: None Non-medical: None Tobacco Use ??? Smoking status: Current Every Day Smoker Packs/day: 3.00 Years: 25.00 Pack years: 75.00 Last attempt to quit: 02/16/2014 Years since quittin.1 ??? Smokeless tobacco: Never Used ??? Tobacco comment: DOES VAPE 6MG CARTRIDGE Substance and Sexual Activity ??? Alcohol use: Not Currently ??? Drug use: No ??? Sexual activity: Defer control/protection: Tubal Ligation Lifestyle ??? Physical activity: Days per week: None Minutes per session: None ??? Stress: None Relationships ??? Social connections: Talks on phone: None Gets together: None Attends confucianist service: None Active member of club or organization: None Attends meetings of clubs or organizations: None Relationship status: None ??? Intimate partner violence: Fear of current or ex partner: None Emotionally abused: None Physically abused: None Forced sexual activity: None Other Topics Concern ??? None Social History Narrative ??? None Patient's Preferred Language: Croatian Cultural Requests During Hospitalization: NONE Acute Conditions/Co-morbidities requiring Acute Rehab: Anemia, Increased WBC, IV antibiotics, Urinary tract infection, Acute renal failure, Pneumonia and/or other respiratory issues, Uncontrolled HTN, Uncontrolled DM, Altered mental status, Other (comment), Electrolyte imbalance, Uncontrolled pain,Neurological disorder/exacerbation(H/H 10.3/30.5; WBC 14.8-8.7; IVPB Zosyn & Zithromax; BUN/CREAT 48/2.30 2nd to Contrast; Chest CT: Pulmonary Nodule; On Norvasc, lasix,; On Lantus, Lispro [id number]; CVA Left Amanda- right hem; Dysphagia-PEG tube w TF; Incontinent; Urine turbid in color; ) HPI: Patient was admitted to [facility] on 04/17/2019 with Right Sided Weakness: Dr Mehta H&P: SUBJECTIVE: Right-sided weakness HPI: Patient is a 64 y.o. female with a PMHx significant for hypertension, diabetes presents to theED with a chief complaint of right-sided weakness. The weakness was gradually getting worse she called the EMS and came to the ER. The ER tele neurology evaluated the patient patient was out of window for tPA. Patient had a CT head and CT angiogram which showed no acute abnormality. patient was admitted for further management.Neurology was consulted. Patient and a NIHSS score at the time of admission was [address] ER[address] When Dr Mehta saw the patient in the morning, patient has a slurring ofspeech with facial droop and right-sided weakness. ASSESSMENT/PLAN: 1. CVA with right-sided weakness : Patient on aspirin and statin. MRI of the brain pending. PT and OT was consulted .speech was consulted. Neurology was consulted awaiting for recommendations. Will get echo. Will Get social work assistant for discharge planning patient might need rehab 2. Hypertension uncontrolled: Closely monitor the blood pressure the patient is on lisinopril 3. Diabetes HbA1c is 8.1: Sugars closely will place the patient on Lantus 10 units at nighttime janeth sliding scale 4. Failed bedside swallow evaluation: Barium swallow failed . Patient might need an NG tube. 04/17/2019: Head CT: IMPRESSION: 1. NO ACUTE INTRACRANIAL ABNORMALITY. 2. MILD SMALL VESSEL MICROVASCULAR ISCHEMIC DISEASE. 3. SMALL OLD APPEARING BILATERAL THALAMIC INFARCTS. 04/18/2019: Modified BArium Swallow: IMPRESSION: 1. Impaired oral phase. 2. Slippage of pudding bolus down base of tongue before triggering swallow. 3. Silent aspiration of a fairly large residual bolus of pudding mixture into trachea immediately prior to ingesting nectar consistency liquid. 4. Small amount of silent aspiration of the nectar consistency liquid. 04/18/2019: Renal Ultrasound: IMPRESSION: NORMAL RENAL ULTRASOUND 04/18/2019: Abdominal Radiography: IMPRESSION: 1. NG tube tip in distal stomach. 2. Nonspecific bowel gas pattern. 3. Residual contrast in kidneys and urinary bladder from CT yesterday. 04/18/2019: Dr Osborn consulted for Neurology: History of present illness: Ms El presents for evaluation. She has been referred by Dr. Jay, ER physician for assessment. She is a very pleasant 64-year-old female with a history of diabetes and hypertension and hypercholesterolemia, presented to the emergency room yesterday complaining of right sided weakness and slurred speech which began at noon on 04/17/2019. Patient states she was able to do laundry after it began but symptoms seem to worse. Patient denied any falls or trauma. Patient also denied any pain-no headache chest pain or abdominal pain. Patient did night any vision changes. Patient denies any prior history of stroke. No recent surgeries.Blood sugars 167 per EMS. Patient came to the emergency room at 4-1/2 hour ailin. She isoutside the tPA window. CT angiography was undertaken it did not reveal any large vessel occlusion the patient subsequently admitted. Patient denies any headaches. Has difficulty swallowing and speaking. No symptoms of weakness on the left side. Assessment/plan 1. Right hemiparesis: Ms. El is a 64-year-old with with prior history of diabetes, hypertension, hyperlipidemia who presents with sudden onset neurological changes characterized by right-sided weakness and slurring of speech. Physical findings revealed evidence of right hemiparesis with signific ant dysarthria. No sensory loss noted. Dense hemiplegia was noted. Suspect ischemic stroke . Has been started on aspirin therapy. Swallowing evaluation. Complete stroke workup including echocardiogram. Recommend physical therapy and occupational therapy patient will require inpatient rehabilitationpost discharge. Optimize diabetes and hypertension. 2. Hyperlipidemia: Continue statin therapy. 3. Pulmonary nodule: Chronic. Was seen in the CT chest done on 08/22 as well. Benign 04/19/2019: Dr Ricki Nuñez was consulted for Nephrology: ARF due to contrast nephropathy; CKD3 dueto DM/HTN(likely predisposed for above) 04/19/2019: Cardiac ECHO: Conclusions: Moderate concentric left ventricular hypertrophy. Normal global left ventricular systolic function. Diastolic dysfunction is present. Ejection fraction is visually estimated at 60 to 65 %. Normal atrial septum. Saline contrast study performed without evidence of right to left shunt. Normal structure of the mitral valve. Trivial regurgitation of the mitral valve. Normal structure of the aortic valve. Normal structure of the tricuspid valve. Trivial regurgitation in the tricuspid valve. 04/20/2019: Dr Mehta Progress Note: Subjective Right-sided weakness present, patient failed aswallow evaluation. Patient pulled her NG tube last night, do NG tube was placed. Will ask the speech to re-evaluate the patient tomorrow 04/21/2019: Dr Kendall consulted for Gastroenterology; PEG tube Placement: GI PLAN: 1. Upper endoscopy with placement of feeding tube 04/22/2019. 2. Discussed the procedure with the family and the patient home seems to be aware and understand the procedure and agree with to proceed. 3. Patient is on Zosyn and this will serve as prophylaxis from infection 4. I will discontinue aspirin to minimize risk of bleeding but continue Lovenox at night 04/22/2019: Providers: Ben Kendall M.D.Impression: - Normal examined duodenum. - Normal esophagus. - Normal stomach. - An externally removable PEG placement was successfully completed. - No specimens collected. Recommendation: - Please follow the post-PEG recommendations. - Start PEG tube feedings tomorrow morning. - May use tube in 4 hours for medications only. - Keep head of bed elevated 30 degrees at all times. 04/23/2019: Chest X-Ray: IMPRESSION: MINIMAL RIGHT PLEURAL EFFUSION WITH INCREASING RIGHT MIDDLE AND RIGHT LOWER LOBE ATELECTASIS AND INFILTRATE. 04/23/2019: Dr Puente-Hospitalist Progress Note: Status post PEG tube placement; No events overnight ;Tele monitor . No atrial fibrillation 04/23/2019: Dr Nuñez Progress Note: Chief complaint of ARF. Interval History: biochemical improvement Assessment/Plan; Principal Problem: Cerebrovascular accident (CVA) (CMS/HCC); First negative delta creatinine. Likely recovery 04/23/2019: Tube Feeding: Recommendations: Recommend modify TF to Nepro at 46 ml/hour continuous goal rate, with 200 ml flushes q 4 hours, for total of 2000 kcals per day, 90 g pro, 2000 ml total H2O/24 hours. Patient has been working with Physical Therapy, Occupational Therapy and Speech Language Pathology.Per [facility] Death Surveys Coder patient has been up in the chair for several hours each day, but requiring a eliel lift to get back to bed. Per [facility] Therapy Discipline Evaluations patient can tolerate three to four hours of therapy per day. Reviewed case with Hot Dip Plater and was given the approval to send clinical information to Insurance Provider, Trudi. Date of Onset: Date of Onset: 04/17/19 Date Admitted to Acute: Date admitted to acute: 04/17/19 Precautions/Restrictions: Aspiration, Seizure, Falls, Hypertension Weight Bearing Precautions: Right sided Flaccid; Full weight bearing; requires a eliel lift for transfers [place] Suicide Severity Rating Scale: 1. Wish to be : No 2. Suicidal Thoughts: No 6. Suicide Behavior Question: No Allergies: Allergies Allergen Reactions ??? Metformin Diarrhea Code Status: Full Code Vitals: There were no vitals filed for this visit. Current Systems Summary: Height: 160 cm (5' 3 ) Weight: 91.2 kg (201 lb) Diet: NPO--Nepro Continuous Tube Feeding at 46ml/hour and 200 ml water flushes every 4 hours Bladder: Incontinent, Wyatt cath(PAtient was incontinent had a purewick olesya has a wyatt) Bladder-Number of accidents last 4 days: 8 Bowel: Continent, Incontinent Bowel-Number of accidents last 4 days: 2 Date of last BM: 04/23/19 Integumentary: Jenaro Scale 16--New PEG placement with Abdominal incision; No Documented pressure wound Cardiopulmonary: Oxygen via nasal cannula Dialysis: N/A Pain: Patient has pain that is not controlled on current regimen IVs: Peripheral IV Current meds: Current Facility-Administered Medications on File Prior to Visit Medication Dose Route Frequency Provider Last Rate Last Dose ??? acetaminophen (TYLENOL) 32 mg/mL oral suspension 640 mg 640 mg feeding tube Q6H PRN Ben Kendall MD 640 mg at 04/21/192022 ??? amLODIPine (NORVASC) tablet 10 mg 10 mg feeding tube Daily Farrukh Puente MD 10 mg at 04/24/19 0810 ??? aspirin chewable tablet 324 mg 324 mg feeding tube Daily Ben Kendall MD 324 mg at 04/24/19 0811 ??? azithromycin (ZITHROMAX) 500 mg in sodium chloride 0.9% 250 mL IVPB 500 mg intravenous Q24H Ben Kendall MD 500 mg at 04/23/19 1638 ??? dextrose gel in packet 15 g 15 g oral Q15 Min PRN Ben Kendall MD Or ??? dextrose (D10W) 10% bolus 250 mL 250 mL intravenous Q15 Min PRN Ben Kendall MD ??? enoxaparin (LOVENOX) syringe 30 mg 30 mg subcutaneous Daily-2100 Ben Kendall MD 30 mg at 04/23/19 2017 ??? [COMPLETED] furosemide (LASIX) 10 mg/mL injection 40 mg 40 mg intravenous Once Farrukh Puente MD 40 mg at 04/24/19 1108 ??? glucagon injection 1 mg 1 mg intramuscular Q30 Min PRN Ben Kendall MD ??? insulin glargine (LANTUS,BASAGLAR) pen injection 30 Units 30 Units subcutaneous Nightly Ben Kendall MD 30 Units at 04/23/192016 ??? insulin lispro (HumaLOG) pen injection 1-5 Units 1-5 Units subcutaneous Q6H [facility] Ben Kendall MD 3 Units at 04/24/19 0619 ??? insulin lispro (HumaLOG) pen injection 7 Units 7 Units subcutaneous TID with meals Ben Kendall MD 7 Units at 04/24/19 0812 ??? ipratropium-albuterol (DUO-NEB) 0.5-2.5 mg/3 mL nebulizer solution 3 mL 3 mL nebulization Q6H DEVON (RT) Joseph Bennett, WANDA 3 mL at 04/24/19 0742 ??? [] metoclopramide (REGLAN) tablet 5 mg 5 mg feeding tube TID Ben Kendall MD 5 mgat 04/23/19 0832 nystatin 100,000 unit/mL oral suspension 500,000 Units 500,000 Units swish & spit QID Farrukh Puente MD 500,000 Units at 04/24/19 0811 ??? ondansetron (ZOFRAN) injection 4 mg 4 mg intravenous Q30 Min PRN Ben Kendall MD ??? piperacillin-tazobactam (ZOSYN) 2.25 g in sodium chloride 0.9% 50 mL IVPB 2.25 g intravenous Q8H DEVON Ben Kendall MD 120 mL/hr at 04/24/19 0506 2.25 g at 04/24/19 0506 ??? rosuvastatin (CRESTOR) tablet 10 mg 10 mg feeding tube Nightly Farrukh Puente MD 10 mg at ??? sodium chloride 0.9% flush 0.5-20 mL 0.5-20 mL intra-catheter PRN Ben Kendall MD ??? sodium chloride 0.9% flush 0.5-20 mL 0.5-20 mL intra-catheter Q8H Farrukh Puente MD 10 mL at 04/24/19 050 Current Outpatient Medications on File Prior to Visit Medication Sig Dispense Refill ??? alcohol swabs (BD ALCOHOL SWABS) pads, medicated Used with lancets to test glucose levels once daily ??? amitriptyline (ELAVIL) 25 mg tablet take 1 tablet by oral route every day at bedtime (Patient not taking: Reported on 07/30/2018 ) 0 0 ??? ascorbic acid, vitamin C, (VITAMIN C) 500 mg capsule, extended release CR capsule take 1 by oral route everyday (Patient not taking: Reported on 07/30/2018 ) 0 0 ??? b complex vitamins tablet (Patient not taking: Reported on 07/30/2018) 0 0 ??? blood glucose diagnostic (ACCU-CHEK SMARTVIEW TEST STRIP) strip Use to test blood glucose once daily ??? blood glucose diagnostic (glucose blood) strip Use as directed to check blood sugars 100 each 11 ??? gabapentin (NEURONTIN) 100 mg capsule Take 1 capsule (100 mg total) by mouth 3 (three) times a day. 90 capsule 5 ??? glimepiride (AMARYL) 4 mg tablet Take 1 tablet (4 mg total) by mouth daily before breakfast. 90tablet 3 ??? glimepiride (AMARYL) 4 mg tablet Take 4 mg by mouth daily before breakfast ??? insulin glargine (LANTUS,BASAGLAR) 100 unit/mL (3 mL) insulin pen Inject 28 Units under the skin nightly ??? insulin syringe-needle U-100 1/2 mL 30 gauge syringe USE TO INJECT 1 TO 4 TIMES DAILY DIRECTED 100 each 1 ??? lancets misc Use to test blood glucose once daily ??? lisinopril (PRINIVIL,ZESTRIL) 5 mg tablet TAKE 1 TABLET EVERY DAY 90 tablet 3 ??? multivitamin capsule Take 1 capsule by mouth daily. ??? pen needle, diabetic 32 gauge x 1/4 needle Use as directed with insulin pen needle. 100 each 3 ??? rosuvastatin (CRESTOR) 20 mg tablet TAKE 1 TABLET EVERY DAY 90 tablet 3 Substance abuse history: Nora El reports that she has been smoking. She has a 75.00 pack-year smoking history. Shehas never used smokeless tobacco. She reports that she drank alcohol. She reports that she does notuse drugs. Diagnostic Tests: Recent Results (from the past 72 hour(s)) POCT glucose Collection Time: 04/21/19 6:06 PM Result Value Ref Range Glucose, POC, bld 221 (H) 71 - 98 mg/dL POCT glucose Collection Time: 04/22/19 12:15 AM Result Value Ref Range Glucose, POC, bld 330 (Critical) 71 - 98 mg/dL Renal function panel Collection Time: 04/22/19 3:43 AM Result Value Ref Range Sodium 136 135 - 145 mmol/L Potassium, pl 3.9 3.3 - 4.9 mmol/L Chloride 92 (L) 97 - 110 mmol/L CO2 32 22 - 32 mmol/L Anion Gap 12 2 - 15 mmol/L BUN 47 (H) 8 - 25 mg/dL Creatinine 2.55 (H) 0.60 - 1.10 mg/dL Glucose 258 (H) 70 - 199 mg/dL Calcium 8.5 8.5 - 10.3 mg/dL Phosphorus, pl 4.7 (H) 2.3 - 4.5 mg/dL Albumin 2.8 (L) 3.5 - 5.0 g/dL eGFR Collection Time: 04/22/19 3:43 AM Result Value Ref Range GFR 19 mL/min/1.73 m2 POCT glucose Collection Time: 04/22/19 5:53 AM Result Value Ref Range Glucose, POC, bld 235 (H) 71 - 98 mg/dL POCT glucose Collection Time: 04/22/19 11:29 AM Result Value Ref Range Glucose, POC, bld 234 (H) 71 - 98 mg/dL Sodium, urine, random Collection Time: 04/22/19 12:33 PM Result Value Ref Range Sodium, ur 84 mmol/L Urinalysis reflex to microscopic and culture Urine Collection Time: 04/22/19 12:33 PM Result Value Ref Range Color, ur Yellow Yellow Clarity, ur Turbid (A) Clear Specific gravity, ur 1.002 (L) 1.010 - 1.025 pH, urine 6.0 Protein, ur ql Negative Negative Glucose, ur ql Negative Negative Ketones, ur Negative Negative Bilirubin, ur Negative Negative Blood, ur Negative Negative Urobilinogen, ur 0.2 mg/dL Nitrite, ur Negative Negative Leukocyte esterase, ur Negative Negative POCT glucose Collection Time: 04/22/19 5:11 PM Result Value Ref Range Glucose, POC, bld 200 (H) 71 - 98 mg/dL POCT glucose Collection Time: 04/22/19 11:55 PM Result Value Ref Range Glucose, POC, bld 118 (H) 71 - 98 mg/dL POCT glucose Collection Time: 04/23/19 2:37 AM Result Value Ref Range Glucose, POC, bld 152 (H) 71 - 98 mg/dL Basic metabolic panel Collection Time: 04/23/19 3:35 AM Result Value Ref Range Sodium 138 135 - 145 mmol/L Potassium, pl 3.8 3.3 - 4.9 mmol/L Chloride 97 97 - 110 mmol/L CO2 30 22 - 32 mmol/L Anion Gap 12 2 - 15 mmol/L BUN 44 (H) 8 - 25 mg/dL Creatinine 2.42 (H) 0.60 - 1.10 mg/dL Glucose 180 70 - 199 mg/dL Calcium 8.4 (L) 8.5 - 10.3 mg/dL CBC with auto differential Collection Time: 04/23/19 3:35 AM Result Value Ref Range WBC 10.9 (H) 3.8 - 9.9 K/cumm Hgb 10.7 (L) 11.9 - 15.5 g/dL Hct 31.3 (L) 35.6 - 45.5 % Plt 195 150 - 400 K/cumm MPV 11.2 9.1 - 12.3 fL RBC 3.64 (L) 3.90 - 5.20 M/cumm MCV 86.0 81.3 - 96.4 fL MCH 29.4 27.1 - 33.3 pg MCHC 34.2 32.3 - 35.7 g/dL RDW CV 12.6 11.1 - 14.9 % RDW SD 39.6 35.7 - 48.1 fL NRBC Abs 0.00 0.00 - 0.01 K/cumm Differential, auto Collection Time: 04/23/19 3:35 AM Result Value Ref Range Neutrophil absolute 7.5 (H) 1.7 - 6.5 K/cumm Immature granulocyte absolute 0.0 0.0 - 0.1 K/cumm Lymphocytes absolute 2.2 0.8 - 3.3 K/cumm Monocyte absolute 0.8 0.2 - 0.8 K/cumm Eosinophils absolute 0.3 0.0 - 0.5 K/cumm Basophils, abs 0.1 0.0 - 0.1 K/cumm Neutrophils 68.8 % Immature granulocytes 0.3 % Lymphocytes 19.7 % Monocytes 7.5 % Eosinophils 3.1 % Basophils 0.6 % eGFR Collection Time: 04/23/19 3:35 AM Result Value Ref Range GFR 20 mL/min/1.73 m2 POCT glucose Collection Time: 04/23/19 6:00 AM Result Value Ref Range Glucose, POC, bld 235 (H) 71 - 98 mg/dL POCT glucose Collection Time: 04/23/19 11:53 AM Result Value Ref Range Glucose, POC, bld 285 (H) 71 - 98 mg/dL POCT glucose Collection Time: 04/23/19 5:56 PM Result Value Ref Range Glucose, POC, bld 273 (H) 71 - 98 mg/dL POCT glucose Collection Time: 04/24/19 12:02 AM Result Value Ref Range Glucose, POC, bld 258 (H) 71 - 98 mg/dL Basic metabolic panel Collection Time: 04/24/19 5:14 AM Result Value Ref Range Sodium 139 135 - 145 mmol/L Potassium, pl 3.7 3.3 - 4.9 mmol/L Chloride 95 (L) 97 - 110 mmol/L CO2 31 22 - 32 mmol/L Anion Gap 13 2 - 15 mmol/L BUN 48 (H) 8 - 25 mg/dL Creatinine 2.30 (H) 0.60 - 1.10 mg/dL Glucose 223 (H) 70 - 199 mg/dL Calcium 8.6 8.5 - 10.3 mg/dL CBC with auto differential Collection Time: 04/24/19 5:14 AM Result Value Ref Range WBC 8.7 3.8 - 9.9 K/cumm Hgb 10.3 (L) 11.9 - 15.5 g/dL Hct 30.5 (L) 35.6 - 45.5 % Plt 211 150 - 400 K/cumm MPV 11.0 9.1 - 12.3 fL RBC 3.55 (L) 3.90 - 5.20 M/cumm MCV 85.9 81.3 - 96.4 fL MCH 29.0 27.1 - 33.3 pg MCHC 33.8 32.3 - 35.7 g/dL RDW CV 12.2 11.1 - 14.9 % RDW SD 38.5 35.7 - 48.1 fL NRBC Abs 0.00 0.00 - 0.01 K/cumm Differential, auto Collection Time: 04/24/19 5:14 AM Result Value Ref Range Neutrophil absolute 5.3 1.7 - 6.5 K/cumm Immature granulocyte absolute 0.0 0.0 - 0.1 K/cumm Lymphocytes absolute 2.1 0.8 - 3.3 K/cumm Monocyte absolute 0.9 (H) 0.2 - 0.8 K/cumm Eosinophils absolute 0.3 0.0 - 0.5 K/cumm Basophils, abs 0.1 0.0 - 0.1 K/cumm Neutrophils 61.0 % Immature granulocytes 0.2 % Lymphocytes 24.3 % Monocytes 10.5 % Eosinophils 3.2 % Basophils 0.8 % eGFR Collection Time: 04/24/19 5:14 AM Result Value Ref Range GFR 21 mL/min/1.73 m2 POCT glucose Collection Time: 04/24/19 6:06 AM Result Value Ref Range Glucose, POC, bld 224 (H) 71 - 98 mg/dL Prior Functional Status: Mobility status/Ambulation aid/assistive devices: Transfers: Independent Walking: Independent Walking assistive devices used: None Wheelchair mobility: Not applicable Stair negotiation: Independent Falls: Has the patient had 2 or more falls in the past year or any fall with injury in the past year?: Unknown Activities of daily living (ADL) status/ Assistive devices used for ADLs: Dressing: Independent Bathing: Independent Toileting: Independent Bladder: Continent Bowel: Continent Driving: No Functional limitations: Hearing: Normal Sensory Vision: Normal Cognition: Intact Communication: Normal Nutrition: Normal Occupation: Disabled Pre-Hospital Vocational Status: Retired for disability;Retired for age Home Setting: One story home Prehospital Lives With: Adult children (Daughter Migdalia; Yessica other daughter can be of assistance at discharge per Death Surveys Coder note) Exterior Home Access: Steps;No rails (2 Steps to Enter) Interior Home Access: No steps (Not Documented) Current functional status: ADL: OT Functional Mobility: Evaluation on 04/18/2019: Static and Dynamic Sitting Close Supervision; Static Standing Moderate Assist of 2; Supine to Edge of bed Moderate assist of 2; Sit to stand Maxium Assist of 2; RUE-Flaccid; LUE-WFL; Treatment Note 04/22/2019: Static Sitting Close supervision min edge of bed; Dyanmic Sitting Close Supervision; Supine to Edge of bed mod to max of 2; Bed to chair with arms was dependent using eliel lift (Evaluation on 04/18/2019: Treatment Note 04/22/2019) (04/24/2019 11:29 AM) OT Self Care: Evaluation on 04/18/2019: Lower Extremity Dressing-Dependent for Don/Doff both right and left socks; Treatment Note 04/22/2019: Grooming-Maximum Assist; Total Assist to don/doff socks (Evaluation on 04/18/2019: Treatment Note 04/22/2019) (04/24/2019 11:29 AM) OT Cognition: Evaluation on 04/18/2019: Alert and ORiented x4; Follows all commands without diffilculty: Treatment NOte: 04/22/2019: Follows one step commands without difficulty (Evaluation on 04/18/2019: Treatment Note 04/22/2019) (04/24/2019 11:29 AM) OT Communication: Evaluation on 04/18/2019: able to make wants and needs known: Treatment Note 04/22/2019: Difficulty speaking; easy to engage (Evaluation on 04/18/2019: Treatment Note 04/22/2019) (04/24/2019 11:29 AM) Mobility/Transfers: PT Functional Mobility: Evaluation on 04/18/2019: Denies pain, good awareness of errors made; severe deficits RLE; Static Sitting 5 minutes distant supervision; Dynamic sitting-fowrard Lean close supervision; Static Standing Moderate Assist; Supin to and from Edge of bed moderate assist of 2; Max assist to scoot of 2; Sit to stand Max of 1+ Min of 1; Right toe and ankle is flaccid; Treatment NOte: 04/23/2019: Denies pain; Supin to and from Edge of bed is mod/max assist of 2; Sit to stand and stand to sit Dependent was unable to come to a complete stand, was eliel lifted to chair; Per Death Surveys Coder patient has been sitting up in the chiar for several hours a day, requiring eliel lift to return to bed; (Evaluation on 04/18/2019: Treatment NOte: 04/23/2019: ) (04/24/2019 11:29 AM) Cognition/Communication/Swallowing: [employer] RECRUITER Cognition: Per OT Evaluation and Treament: Evaluation on 04/18/2019: Alert and ORiented x4; Follows all commands without diffilculty: Treatment NOte: 04/22/2019: Follows one step commands withoutdifficulty (04/24/2019 11:29 AM) O[employer] G[employer] RECRUITER Communication: Per Speech Therapy Pathology Evaluation: Severe dysarthria (04/24/2019 11:29 AM) OIL [employer] G[employer] RECRUITER Swallowing: Per Speech Language Pathology: SEvere Dysphagia has PEG tube with Nepro Tube feeding at 45 mls per hour with 200 ml water flush every four hours (04/24/2019 11:29 AM) Risks/Complications: Infection: Pneumonia(Risk for aspiration Pneumonia due to severe dysphagia and the inability to manage her secretions; patient is NPO and has tube feedings for nutritional supplements) Neuro: Aphasia, Cognitive impairment, CVA, Hemiplegia(Risk for increase in aphasia and dysphagia; Risk for increase in Cognitive Impairment due to change in hospital environment; Risk for extensionofembolic cerebral event or transition to a hemorrhagic cerebral event; Risk for fall w/wo injury dueto Right) Other: Acute Renal Failure, Anemia, Anxiety, Depression, Electrolyte imbalance, Hyperglycemia, Hypertension crisis, Hypoglycemia, Malnutrition, Respiratory distress(Risk for Acute Renal Failure due to increasing BUN/Creat, Nephrology to follow; Risk for transfusion due to decrease hgb/hct; Risk forincrease in anxiety/depression due to inability to manage self care /mobility; Risk for uncontrolled diabetes related t) Describe how these risks could potentially impact rehab stay: Any Medical Decline can Impact Functional Progress with Intensive Therapies; Shortness of Breath, possible aspiration due to severe dysphagia. Alternative Level of Care considered and not appropriate due to: Daily MD oversight, Frequent suctioning, Medication adjustment/oversight, IV therapy, IV medications, Repeat swallow studies Patient/Caregiver Goals: Patient and Family Goals: Daughters Migdalia and Yessica want to bring patient home as soon as she is ready, they are willing to assist patient with her needs Cosigned by Pedro Monroe MD at 04/24/2019 4:14 PM CDT Associated attestation - Pedro Monroe MD - 04/24/2019 4:14 PM CDT Rehab Referral Decision: Approved I have reviewed this patient Pre-admission Screening Information.The patient is medically stable toparticipate in an inpatient rehabilitation program. In my rehabilitation experience and professional judgement, this patient meets medical necessity criteria and requires an inpatient rehabilitation stay to manage current nursing and medical issues. The patient requires supervision by a rehabilitation physician at least three times a week. The patient requires the Interdisciplinary team approach of an inpatient rehabilitation program. This patient can reasonably expect to participate and benefit from the intensive Inpatient rehabilitation program offered at [facility] . documented in this encounter Plan of Treatment Not on file documented as of this encounter Visit Diagnoses Not on filedocumented in this encounter Additional Health Concerns Infection Onset Date Last Indicated Resolved Time COVID: Suspected 12/21/2020 12/21/2020 12/21/2020 5:36 PM STAFF RADIOLOGIST Respiratory Infection (HEBER), contact + droplet Comment:Automatically added due to negative COVID-19 result. 12/21/2020 12/21/2020 12/23/2020 8:1 2 AM STAFF RADIOLOGIST COVID19 Comment:Patient tested positive on 06/13/21 at an outside facility. Patient has no documented SpO2 < 94% and has not required supplemental oxygen above her baseline 3 liters per nasal cannula. Based on this positive testing date plus no need for supplemental oxygen above her baseline the patient is first eligible for COVID: Recovered evaluation on 06/24/21. Unable to determine first symptomatic date from current documentation. MACHO Thomas Added from the Screening question BPA, identifying patients that tested positive for COVID in the last 14 days and the result is from a facility outside [facility] . 06/20/2021 06/20/2021 07/11/2021 3:05 AM CDT COVID: Suspected 01/28/2022 01/28/2022 01/28/2022 10:44 PM CDT Influenza, adult Comment:Patient has reached 7 days since symptom onset and been afebrile >24 hours off of antipyretic medication. 01/28/2022 01/28/2022 01/31/2022 4:50 PM CDT COVID: Suspected 02/23/2022 02/23/2022 02/24/2022 12:15 AM CDT COVID: Suspected 03/12/2022 03/12/2022 03/12/2022 4:30 AM CDT COVID: Suspected 03/26/2022 03/26/2022 03/26/2022 1:41 PM CDT COVID: Suspected 12/02/2023 12/02/2023 12/02/2023 3:23 PM STAFF RADIOLOGIST COVID: Suspected 12/02/2023 12/02/2023 12/02/2023 9:46 PM STAFF RADIOLOGIST Human metapneumovirus, conta ct + droplet 12/02/2023 12/02/2023 12/09/2023 9:[address] documented as of this encounter Care Teams Supervisor Cigar Processing Relationship Specialty Start Date End Date Jose Juan Madrigal MD [address] [place] [address] [address] PCP - General 02/02/17 Pedro Monroe MD [address] [place] [address] Consulting Physician Physical Medicine and Rehabilitation 05/21/19 Tonya Barahona, RN [address] [facility] [address] [place] [address] Citrus Fruit Colorer 05/23/19 06/12/19 Caden Nuñez MD [address] [place] [address] Consulting Physician Nephrology 03/09/22 Luis Barney MD [address] [place] [address] [address] [place] [address] Consulting Physician Infectious Diseases 03/16/22 documented as of this encounter
--- OUTSIDE RECORDS SUMMARY | 2025-01-11 14:38 | XMS_ITS ---
Author Organization [facility] [place] [address] [facility] lto Address [address] [place] [address] Care Team Providers Care Tank Crewmember Name Role Phone Jose Juan Madrigal MD Primary Care Provider [phone] Pedro Monroe MD Unavailable [phone] Caden Nuñez MD Unavailable [phone] Luis Barney MD Unavailable [phone] Dialysis Access Sites Type Status Location Placement Date Removal Da te AV graft Active Left Upper Arm - Anterior 12/04/2023 Hemodialysis Cath Double 03/07/22 Tunneled catheter Right Internal Jugular Inactive Right Neck (side) - Anterior 03/07/2022 12/04/2023 Procedures Procedure Name Priority Date/Time Associated Diagnosis Comments EGFR Timed 12/09/2023 4:53 AM GENERATOR OPERATOR STRAIGHT BEVEL GEAR HEMOGLOBIN A1C STAT 12/03/2023 4:38 AM GENERATOR OPERATOR STRAIGHT BEVEL GEAR HEPATITIS PANEL, ACUTE STAT 03/06/2022 9:15 AM CDT LIPID PANEL Routine 06/23/2021 9:32 AM CDT COLONOSCOPY 09/05/2018 9:13 AM CDT SCREENING MAMMOGRAM BILATERAL W MANNY Schedule Routine, Read Routine (OP Routine) 08/08/2018 8:39 AM CDT Breast cancer screening CT LUNG CANCER SCREENING Schedule Routine, Read Routine (OP Routine) 08/08/2018 8:09 AM CDT Encounter for screening for lung cancer DIABETIC EYE EXAM Routine 06/06/2018 from Last 3 Months or Most Recently Relevant to Health Maintenance Allergies Active Allergy Reactions Criticality Noted Date Comments Baclofen Dystonia High 03/31/2022 Metformin Diarrhea Low 09/09/2018 Medications lancets misc Use to test blood glucose once daily 6 Active alcohol swabs pads, medicated Used with lancets to test glucose levels once daily 6 Active insulin syringe-needle U-100 1/2 mL 30 gauge syringe USE TO INJECT 1 TO 4 TIMES DAILY DIRECTED 100 each 1 8 Active pen needle, diabetic 32 gauge x 1/4 needle Use as directed with insulin pen needle. 100 each 3 8 Active atorvastatin (LIPITOR) 40 mg tablet Take 40 mg by mouth nightly Active apixaban (ELIQUIS) 5 mg tabletIndications :atrial fibrillation Take 2.5 mg by mouth 2 (two) times a day Give mg BID Active albuterol HFA (PROVENTIL HFA,VENTOLIN HFA,PROAIR HFA) 90 mcg/actuation inhaler Inhale 2 puffs every 4 (four) hours as needed for wheezing 1 Inhaler 1 Active ascorbic acid (VITAMIN C) 500 mg tablet,chewableIn dications:Related to covid Take 500 mg by mouth daily 1 Active zinc sulfate (ZINCATE) 50 mg zinc (220 mg) capsule Take 220 mg by mouth daily Active gabapentin (NEURONTIN) 100 mg capsuleIndication s:Neuropathic Pain Take 100 mg by mouth 3 (three) times a day Active insulin aspart (NovoLOG) 100 unit/mL (3 mL) pen for injectionIndicati ons:type 2 diabetes mellitus Inject 3 Units under the skin 3 (three) times a day before meals Active acetaminophen 500 mg capsuleIndication s:Pain Take 2 capsules (1,000 mg total) by mouth every 6 (six) hours as needed for pain 4 Active cyclobenzaprine (FLEXERIL) 5 mg tabletIndications :Muscle Spasm Take 1 tablet (5 mg total) by mouth 3 (three) times a day as needed for muscle spasms 4 Active calcitRIOL (ROCALTROL) 0.5 mcg capsule Take 1 capsule (0.5 mcg total) by mouth 3 (three) times a week 4 Active insulin lispro (HumaLOG, ADMELOG) 100 unit/mL vial for injection Inject 1-5 units under the skin 3 (three) times a day with meals. Blood glucose mg/dL 150-199: 1 unit, 200-249: 2 units, 250-299: 3 units, 300-349: 4 units, 350 or greater: 5 units. Notify provider for blood glucose greater than 299 mg/dL. Refer to After Visit Summary for Sliding Scale Insulin Instructions. 4 Active senna-docusate (PERICOLACE) 8.6-50 mgIndications:con stipation Take 1 tablet by mouth 2 (two) times a day 4 Active Active Problems Problem Noted Date Diagnosed Date Discharge planning issues 12/06/2023 Assessment & Plan (12/09/2023 10:13 AM GENERATOR OPERATOR STRAIGHT BEVEL GEAR): -2/1 Medically Stable:CM was notified by Denise from [facility] Denise [phone] - 2/3: facility acceptance. Pending isolation status recovery - 2/4: isolation removed, pending transport for discharge Dermatophytosis of nail 12/04/2023 Overview (12/04/2023): R HALLUX Closed displaced spiral fracture of shaft of rig ht femur 12/03/2023 Anemia in chronic kidney disease, on chronic daylin lysis 12/03/2023 Assessment & Plan (12/09/2023 10:15 AM GENERATOR OPERATOR STRAIGHT BEVEL GEAR): - Hgb 7.4 at OSH - Hgb trend: 7.4- 7.6- 8.8-8.3 - EBL 300 cc - 2/: Hgb 10.2 - CBC was monitored, no active signs or symptoms of bleeding, hemodynamically unsupported at discharge Infection due to human metapneumovirus (hMPV) Assessment & Plan (12/09/2023 10:12 AM GENERATOR OPERATOR STRAIGHT BEVEL GEAR): - Positive on RVP on 12/02 - Reported cough and shortness of breath in OSH ED x 1 week - contact and droplet precautions - chest xray 12/02: small lung volumes, some patchy atelectasis, no definite pleural effusion, no pneumothorax - Receiving azithromycin and ceftriaxone for possible pneumonia -- discontinued per ID stewardship recs - Supportive care Respiratory Isolation completed 12/09/2023, isolation removed Closed fracture of right distal femur 12/02/2023 Assessment & Plan (12/09/2023 10:14 AM GENERATOR OPERATOR STRAIGHT BEVEL GEAR): - Ortho Trauma consulted - OR 12/03 for IMN and ORIF distal femur [[facility], Ortho Trauma] - WBAT RLE - Follow up with Dr. Montaño 01/14 at 10am, restarted home Eliquis 2.5 mg BID for A fib and post op DVT prophylaxis - Suture removal 3 weeks post op - Hemovac in place, OTS with remove when drain output is <30 ml over 24 hrs - removed Hyperkalemia 04/15/2022 Right-sided chest pain 03/26/2022 Hypoxia 03/12/2022 Acute kidney failure, unspecified 03/09/2022 Dependence on renal dialysis 03/09/2022 Hemiparesis affecting right side as late effect of cerebrovascular accident 02/24/2022 Assessment & Plan (02/24/2022 6:22 AM CDT): Continue Eliquis Altered mental status 02/24/2022 Assessment & Plan (02/24/2022 6:24 AM CDT): Likely encephalopathy secondary to infection and fever. Patient has improved at this time and is A&O times 3. Patient cannot recall events that led to her being brought to the hospital. Patient on empiric antibiotics. Sepsis 02/24/2022 Assessment & Plan (02/24/2022 6:34 AM CDT): Presumed. Patient had a fever of 101.2 and leukocytosis of over 15 on presentation. Patient also encephalopathic with JARED. Two possible sources of infection include pneumonia and UTI. Patient received ceftriaxone, azithromycin and 1 dose of vancomycin as patient has a history of Enterococcus UTI. Patient also recently had influenza. Cultures are in process. Vitamin deficiency, unspecified 02/02/2022 Diarrhea of presumed infectious origin 2 Complicated UTI (urinary tract infection) 2021 Encephalopathy, unspecified 06/27/2021 Acute and chronic respirator y failure, unspecified whether with hypoxia or hypercapnia 06/27/2021 COVID-19 06/22/2021 Acute hypoxemic respiratory failure 06/22/2021 Dysphagia, oropharyngeal phase 04/11/2021 Assessment & Plan (12/09/2023 10:13 AM GENERATOR OPERATOR STRAIGHT BEVEL GEAR): - Previously documented dysphagia with last DESIGNER/WRITER recommendations of Pureed diet with Honey Thickened liquids (03/2022), unclear if advanced - Concern from nursing that patient may be aspirating - NPO pending DESIGNER/WRITER swallow evaluation (will not be able to see patient until 12/05, start D5NS @25 ml/hr with end time in 24 hours) - 1:1 assist with feeding 12/05 Modified Barium Swallow per DESIGNER/WRITER, ok to give meds with applesauce prior to evaluation 12/06 Speech Evaluation: Mechanical Soft diet and regular liquids Cardiomegaly 12/23/2020 Diarrhea, unspecified 12/23/2020 Contamination of blood culture 12/21/2020 Disorientation 12/19/2020 JARED (acute kidney injury) ([facility]) 12/19/2020 Assessment & Plan (02/24/2022 6:25 AM CDT): On CKD 4. Holding diuretic and nephrotoxins. Continue fluids. Will monitor. Weakness 08/17/2020 Other lack of coordination 08/17/2020 Muscle weakness (generalized) 06/02/2020 Urinary tract infection asso ciated with indwelling urethral catheter 11/22/2019 Sepsis secondary to UTI 11/22/2019 Cerebrovascular accident (CV A) due to thrombosis of left middle cerebral artery 07/22/2019 Overview (07/22/2019): Added automatically from request for surgery [id number] Cataract (lens) fragments in eye following cataract surgery, bilateral 06/16/2019 Type 2 diabetes mellitus wit h diabetic autonomic (poly)neuropathy 06/16/2019 Hemiplegia and hemiparesis f ollowing unspecified cerebrovascular disease affecting right dominant side 06/16/2019 Neuromuscular dysfunction of bladder, unspecifie d 06/16/2019 Cerebrovascular accident (CVA) ([facility]) 019 Overview (04/21/2019): Added automatically from request for surgery [id number] Assessment & Plan (12/03/2023 4:05 PM GENERATOR OPERATOR STRAIGHT BEVEL GEAR): - Residual dysarthria, R hemiplegia, and hemiparesis requiring Amadou lift Uncontrolled type 2 diabetes mellitus with hyperglycemia ([facility]) 09/09/2018 Assessment & Plan (12/09/2023 10:11 AM GENERATOR OPERATOR STRAIGHT BEVEL GEAR): - Hgb A1c 7.0 - Home medications: Trulicity, Basaglar (insulin glargine), Novolin R ? (Last fill in 10/19/23 for 14 day supply) - SSI and accu-checks while inpatient, glargine 10 units - Mechanical soft diet, regular liquids - Continue sliding scale lispro and lispro 3 units with meals at discharge, facility can transition off sliding scale and start home glargine when able Assessment & Plan (02/24/2022 6:26 AM CDT): Patient appears to be on Lantus 10 units nightly, will resume at 8 units given renal function. Sliding scale coverage. Will monitor. Encounter for screening colonoscopy 08/02/2018 Overview (08/02/2018): Added automatically from request for surgery [id number] Osteoarthritis of multiple joints 01/12/2016 Pure hypercholesterolemia 01/12/2016 Assessment & Plan (12/03/2023 4:08 PM GENERATOR OPERATOR STRAIGHT BEVEL GEAR): - Continue home atorvastatin Insomnia 08/10/2011 Peripheral neuropathy 08/10/2011 Hyperlipidemia 11/05/2007 Overview (02/09/2017): Hyperlipidemia, unspecified hyperlipidemia type Assessment & Plan (02/24/2022 6:22 AM CDT): Continue statin Diabetic peripheral neuropathy ([facility]) 006 Overview (02/10/2017): Type 2 diabetes, controlled, with neuropathy Essential hypertension 11/05/2005 Overview (02/10/2017): Essential hypertension Assessment & Plan (02/24/2022 6:26 AM CDT): Low normal blood pressures. Holding home medications due to low blood pressures currently. Holding diuretic due to JARED. Acute on chronic diastolic congestive heart fail ure Pneumonia Status post gastrostomy, current hospitalization Dysarthria due to acute cere bellar cerebrovascular accident (CVA) End stage renal disease Assessment & Plan (12/09/2023 10:12 AM GENERATOR OPERATOR STRAIGHT BEVEL GEAR): - Nephrology consulted for inpatient management - ESRD on HD (TTS via LUE AVF) Last outpt iHD on 11/29 - will dialyze on Sunday, 12/03 - current intpt iHD prescription: 400/800, 4h, 3K, 2L UF goal - unknown outpt unit. Will need to call [place] in AM to find out dialysis medications and outpt unit location - renal diet when able - renal vitamin daily - renally dose all medications to GFR< 10 - maintain MAP > 65 and Hb > 7 for optimal renal perfusion - 2/3 iHD - Continue dialysis per outpatient credit cashier's recommendations Candidemia Bacteremia Chronic anticoagulation Assessment & Plan (12/09/2023 10:14 AM GENERATOR OPERATOR STRAIGHT BEVEL GEAR): #Atrial fibrillation - No rate controlling medications noted - Home Eliquis 2.5 mg BID held, okay to resume when able from a Ortho perspective - Resume at discharge Immunizations Immunization Administration Dates Next Due Influenza, Quadrivalent, Spl it, Preservative Free, Intramuscular 07/30/2018 Influenza, Unspecified 08/18/2020,2017(Deferred: Patient Refused) Social History Tobacco Use Types Packs/Day Years Used Date Smoking Tobacco: Former Cigarettes 3 25 0 02/16/1989 - 02/16/2014 Smokeless Tobacco: Never Tobacco Cessation:Counseling Given: No Alcohol Use Standard Drinks/Week Comments Not Currently 0 (1 standard drink = 0.6 oz pur e alcohol) [facility] Utilities Answer Date Recorded In the past 12 months has th e electric, gas, oil, or water company threatened to shut off services in your home? No 12/04/2023 Social Connection and Isolat ion Panel [NHANES] Answer Date Recorded In a typical week, how many times do you talk on the phone with family, friends, or neighbors? More than three times a week 12/04/2023 How often do you get togethe r with friends or relatives? Twice a week 12/04/2023 How often do you attend chur ch or latter-day services? Never 12/04/2023 Do you belong to any clubs o r organizations such as buddhist groups, unions, fraternal or athletic groups, or school groups? No 12/04/2023 How often do you attend meet ings of the clubs or organizations you belong to? Never 12/04/2023 Are you , , di vorced, , never , or living with a partner? 12/04/2023 AUDIT-C Answer Date Recorded Q1: How often do you have a drink containing alc ohol? Never 03/29/2022 Average Number of Drinks Not on file 022 Frequency of Binge Drinking Not on file 03/06 Overall Financial Resource Strain (CARDIA) Answe r Date Recorded How hard is it for you to pa y for the very basics like food, housing, medical care, and heating? Not very hard 12/04/2023 PHQ-2 Answer Date Recorded PHQ-2 Total Score (If total score is 3 or more points, staff should administer the PHQ-9) 0 03/17/2022 Hunger Vital Sign Answer Date Recorded Within the past 12 months, y ou worried that your food would run out before you got the money to buy more. Never true 12/04/19 24 Within the past 12 months, t he food you bought just didn't last and you didn't have money to get more. Never true 12/04/2023 PRAPARE - Transportation Answer Date Re corded In the past 12 months, has l ack of transportation kept you from medical appointments or from getting medications? No 11/07 In the past 12 months, has l ack of transportation kept you from meetings, work, or from getting things needed for daily living? No 12/04/2023 Housing Stability Vital Sign Answer Ariel e Recorded In the last 12 months, was t here a time when you were not able to pay the mortgage or rent on time? No 12/04/2023 In the last 12 months, how many places have you lived? 1 12/04/2023 In the last 12 months, was t here a time when you did not have a steady place to sleep or slept in a chcf (including now)? No 12/04/2023 Personal Safety Answer Date Recorded Have you ever been in or are you currently in a harmful physical or emotional relationship or is someone making you feel afraid or unsafe? Denies 12/02/2023 Education Answer Date Recorded What is the highest level of school you have completed or the highest degree you have received? GED or equivalent 09/2022 Comments No Sex and Gender Information Value Date Recorded Sex Assigned at Not on file Legal Sex Female 4:06 AM GENERATOR OPERATOR STRAIGHT BEVEL GEAR Gender Identity Female 01/17/2024 1:34 PM CDT Sexual Orientation Straight 01/17/2024 1: 34 PM CDT Last Filed Vital Signs Vital Sign Reading Time Taken Comments Blood Pressure 123/47 12/09/2023 11:58 AM GENERATOR OPERATOR STRAIGHT BEVEL GEAR Pulse 72 12/09/2023 11:58 AM GENERATOR OPERATOR STRAIGHT BEVEL GEAR Temperature 36.9 C (98.4 F) 12/09/2023 11:58 AM GENERATOR OPERATOR STRAIGHT BEVEL GEAR Respiratory Rate 20 12/09/2023 11:58 AM GENERATOR OPERATOR STRAIGHT BEVEL GEAR Oxygen Saturation 99% 12/09/2023 11:58 AM GENERATOR OPERATOR STRAIGHT BEVEL GEAR Inhaled Oxygen Concentration - - Weight 81.7 kg (180 lb 1.9 oz) 12/08/2023 4:15 A M GENERATOR OPERATOR STRAIGHT BEVEL GEAR Height 160 cm (5' 3 ) 12/02/2023 6:44 PM GENERATOR OPERATOR STRAIGHT BEVEL GEAR Body Mass Index 31.91 12/02/2023 6:44 PM GENERATOR OPERATOR STRAIGHT BEVEL GEAR Results * (ABNORMAL) eGFR (12/09/2023 4:53 AM GENERATOR OPERATOR STRAIGHT BEVEL GEAR) Pathologist [facility] eGFR 14(L) >=60 mL/min/1. 73 m2 [facility] Comment: Interpretive Data Reference Interval Normal >/= 90 mL/min/1.73m2 Mildly decreased* 60 - 89 mL/min/1.73m2 Mildly to moderately decreased 45 - 59 mL/min/1.73m2 Moderately to severely decreased 30 - 44 mL/min/1.73m2 Severely decreased 15 - 29 mL/min/1.73m2 Kidney Failure < 15 mL/min/1.73m2 *Relative to young adult level Estimated glomerular filtration rate is determined by the 2020 CKD-EPI equation recommended by the National Kidney Foundation (A Unifying Approach to GFR Estimation: Recommendations of the NKF-ASK Task Force on Reassessing the Inclusion of Race in Diagnosing Kidney Disease, JASN 2020). The CKD-EPI equation should not be used for patients with unstable renal function and has not been validated in children and those over 70. Current interpretive data was last reviewed 2021. Blood 12/09/2023 4:53 AM GENERATOR OPERATOR STRAIGHT BEVEL GEAR 12/09/2023 6:24 AM GENERATOR OPERATOR STRAIGHT BEVEL GEAR Minesh Emanuel MD LAB BLOOD ORDERABLES Rashida l Result Performing Organization Address City/[facility] de Phone Number [facility] Department [place] [address] * (ABNORMAL) Hemoglobin A1c (12/03/2023 4:38 AM GENERATOR OPERATOR STRAIGHT BEVEL GEAR) [facility] Signature Hgb A1C 7.0(H) 4.0 - 5.6 % [facility] Estimated Average Glucose 154 mg/dL [facility] Comment: The ADA recommends reporting an estimated Average Glucose (eAG) with all Hemoglobin A1c results using the equation derived from a study of 507 normal and diabetic adults. Minority populations were underrepresented and children were not included. (Diabetes Care 2020; 43(S1): S66-S76). The eAG is not equivalent to a fasting glucose. Blood 12/03/2023 4:38 AM GENERATOR OPERATOR STRAIGHT BEVEL GEAR 12/03/2023 4:56 AM GENERATOR OPERATOR STRAIGHT BEVEL GEAR Minesh Emanuel MD LAB BLOOD ORDERABLES Rashida l Result [facility] Department [place] [address] * Hepatitis panel, acute (03/06/2022 9:15 AM CDT) Hep A IgM Nonreactive Nonreactive [facility] ([place]) Comment: Interpretive Data: If Hep A IgM Ab is reported as Equivocal, a new sample should be drawn in two weeks for testing. Current interpretive data was last revised on 20. Testing performed by: [address] [address] Hep B core IgM Nonreactive Nonreactive [facility] ([place]) Comment: Interpretive Data If HepB Core IgM Ab is reported as Equivocal, a new sample should be drawn in two weeks for testing. Current interpretive data was last revised on 20. Testing performed by: [address] [address] Hep C Ab Nonreactive Nonreactive [facility] ([place]) Comment: Interpretive Data Nonreactive: Antibodies to HCV not detected. Does NOT exclude the possibility of recent exposure to HCV. Equivocal: Equivocal for HCV antibodies. Supplemental molecular testing will be automatically performed to determine infection status in accordance with current CDC screening recommendations. Reactive: Positive for HCV antibodies. This may represent current or past HCV infection. Supplemental molecular testing will be automatically performed to determine current infection status in accordance with current CDC screening recommendations. Interpretive data was last revised on 2020. Testing performed by: [address] [address] HepBsAg Nonreactive Nonreactive [facility] ([place]) Comment:Testing performed by : [address] [address] Blood 03/06/2022 9:15 AM CDT 03/06/2022 10:43 AM CDT Caden Nuñez MD LAB MICROBIOLOGY - GENERAL OR DERABLES Final Result [facility] ([place]) [address] [facility] Department [place] [address] * (ABNORMAL) Lipid panel (06/23/2021 9:32 AM CDT) Cholesterol 121 30 - 199 mg/dL [facility] ([place]) Comment: Interpretive Data Ages < or = 19 years Acceptable: <170 mg/dL Borderline high: 170-199 mg/dL High: >or= 200 mg/dL Ages > or = 20 years Desirable: <200 mg/dL Borderline high: 200-239 mg/dL High: >or= 240 mg/dL Literature References: 1. Expert Panel on Integrated Guidelines for Cardiovascular Health and Risk Reduction in Children and Adolescents. Pediatrics 2011;128:S213 2. NCEP Expert Panel. Circulation 2004;110:227 Current Interpretive Data was last revised on 2018. Triglycerides 158(H) <=149 mg/dL [facility] ([place]) Comment: Interpretive Data Ages < or = 9 years Acceptable: <75 mg/dL Borderline high: 75-99 mg/dL High: >or= 100 mg/dL Ages 10 to 20 years Acceptable: <90 mg/dL Borderline high: 90-129 mg/dL High: >or= 130 mg/dL Ages > or = 20 years Desirable: <150 mg/dL Borderline high: 150-199 mg/dL High: 200-499 mg/dL Very high: >or= 499 mg/dL Literature References: 1. Expert Panel on Integrated Guidelines for Cardiovascular Health and Risk Reduction in Children and Adolescents. Pediatrics 2011;128:S213 2. NCEP Expert Panel. Circulation 2004;110:227 Current Interpretive Data was last revised on 2018. HDL 30(L) >=40 mg/dL [facility] ([place]) Comment: Interpretive Data Ages < or = 19 years Acceptable: >45 mg/dL Borderline low: 40-45 mg/dL Low: <40 mg/dL Ages > or = 20 years Desirable: >or= 60 mg/dL Low: <40 mg/dL Literature References: 1. Expert Panel on Integrated Guidelines for Cardiovascular Health and Risk Reduction in Children and Adolescents. Pediatrics 2011;128:S213 2. NCEP Expert Panel. Circulation 2004;110:227 Current Interpretive Data was last revised on 2018. LDL, calculated 59 <=129 mg/dL [facility] ([place]) Comment: Interpretive Data Ages < or = 19 years Acceptable: <110 mg/dL Borderline high: 110-129 mg/dL High: >or= 130 mg/dL Ages > or = 20 years Optimal: <100 mg/dL Near optimal: 100-129 mg/dL Borderline high: 130-159 mg/dL High: >160 mg/dL Literature References: 1. Expert Panel on Integrated Guidelines for Cardiovascular Health and Risk Reduction in Children and Adolescents. Pediatrics 2011;128:S213 2. NCEP Expert Panel. Circulation 2004;110:227 Current Interpretive Data was last revised on 2018. Non-HDL Cholesterol 91 mg/dL [facility] ([place]) Comment: Interpretive Data Ages < or = 19 years Acceptable: <120 mg/dL Borderline high: 120-144 mg/dL High: >145 mg/dL Ages > or = 20 years When triglycerides are >200 mg/dL, Non-HDL cholesterol is a secondary target of therapy with treatment goals that are 30 mg/dL greater than the LDL cholesterol target. Literature References: 1. Expert Panel on Integrated Guidelines for Cardiovascular Health and Risk Reduction in Children and Adolescents. Pediatrics 2011;128:S213 2. NCEP Expert Panel. Circulation 2004;110:227 Current Interpretive Data was last revised on 2018. Chol/HDL ratio 4 [facility] ([place]) Blood 06/23/2021 9:32 AM CDT 06/23/2021 9:35 AM CDT Evert Graves MD LAB BLOOD ORDERABL ES Final Result [facility] ([place]) 1 [facility] Department [place] [address] * COLONOSCOPY (09/05/2018 9:13 AM CDT) Anatomical Region Laterality Modality Other Narrative Procedure Note Esteban Clemente MD - 09/05/2018 9:13 AM CDT [facility] Patient Name: Nora El Procedure Date: 09/05/2018 9:13 AM Date of : 1955 Admit Type: Outpatient Age: 63 Gender: Female Attending MD: Esteban Clemente M.D. Room: [facility] ENDOSCOPY ROOM 1 Note Status: Finalized Procedure: Colonoscopy Indications: Screening for colorectal malignant neoplasm, Last colonoscopy 3 years ago Referring MD: Jose Juan Madrigal M.D. Providers: Esteban Clemente M.D. Impression: - Hemorrhoids found on perianal exam. - The entire examined colon is normal. - No specimens collected. Recommendation: - Discharge patient to home. - Resume previous diet. - Continue present medications. - Repeat colonoscopy in 10 years for screeningpurposes. - Return to primary care physician as previously scheduled. Medicines: Propofol per Anesthesia Complications: No immediate complications. Estimated Blood Loss: Estimated blood loss: none. Procedure: The benefits, risks and alternatives of theprocedure and sedation were discussed and informed consent was obtained. All questions were answered. Please referto the signed informed consent document in the medical record. The scope was passed under direct vision.The Colonoscope [id number] was introducedthrough the anus and advanced to the the cecum, identifiedby appendiceal orifice and ileocecal valve. The colonoscopy was performed without difficulty. The patient tolerated the procedure well. The quality of the bowel preparation was good. Findings: Hemorrhoids were found on perianal exam. The colon (entire examined portion) appeared normal. Electronically signed by Esteban Clemente M.D. Esteban Clemente M.D. 09/05/2018 9:45:39 AM Number of Addenda: 0 Note Initiated On: 09/05/2018 9:13 AM Procedure Code(s): --- Professional --- G0121, Colorectal cancer screening; colonoscopy on individual not meeting criteria for high risk Diagnosis Code(s): --- Professional --- K64.9, Unspecified hemorrhoids Z12.11, Encounter for screening for malignant neoplasm of colon CPT copyright 2017 [employer]. All rights reserved. The codes documented in this report are preliminary and upon class a regional truck driver reviewmay be revised to meet current compliance requirements. Recognized by the [employer] for promoting quality in endoscopy Esteban Clemente MD ENDOSCOPY PROCEDURES Final Re sult * SCREENING MAMMOGRAM BILATERAL W MANNY (08/08/2018 8:39 AM CDT) Anatomical Region Laterality Modality Breast Bilateral Mammography 08/08/2018 11:1 5 AM CDT Impressions 08/08/2018 11:15 AM CDT OVERALL FINAL ASSESSMENT: BI-RADS Category 1: Negative RECOMMENDATION: Annual screening mammography is recommended. Electronically signed by: Morgan Nichols M.D. Narrative 08/08/2018 11:15 AM CDT RESULT: EXAMINATION: SCREENING MAMMOGRAM BILATERAL W MANNY HISTORY: Screening. TECHNIQUE: Full field digital craniocaudal and mediolateral oblique views of both breasts were obtained. Computer aided detection and digital breast tomosynthesis were performed and reviewed as part of this examination. COMPARISON: 04/08/2014. BREAST PARENCHYMAL COMPOSITION: There are scattered areas of fibroglandular density. FINDINGS: No new suspicious abnormality is seen within either breast on mammogram. us Jose Juan Madrigal MD IMG MAMMO PROCEDURES Rashida l Result * CT Lung Cancer Screening (08/08/2018 8:09 AM CDT) Anatomical Region Laterality Modality Chest N/A Computed Tomogra phy 08/08/2018 3:17 PM CDT Impressions 08/08/2018 3:28 PM CDT Lung RADS 2. Benign. Nodules are likely granulomatous or may reflect an infectious or inflammatory process. Low-dose CT in 12 months is recommended.. Electronically signed by: Rudy Sauceda M.D. Narrative 08/08/2018 3:28 PM CDT RESULT: EXAMINATION: CT CHEST WITHOUT CONTRAST, LUNG CANCER SCREENING PROTOCOL Date: 08/08/2018 7:45 AM History: Lung cancer screening Technique: Transaxial computed tomographic images of the chest were obtained without intravenous contrast using a low-dose protocol. Multiplanar coronal and sagittal images were reformatted. Comparison: None Findings: Normal heart size. There are coronary artery calcifications seen. There is thickening or effusion of the pericardium measuring up to 8 mm at the apex. The aorta is nonaneurysmal atherosclerotic calcifications present. The trachea and mainstem bronchi are patent. There are multiple calcified mediastinal and hilar lymph nodes. There is a 4 mm nodule of the right lower lobe (image 85). There is also 4 mm nodule of the inferior right upper lobe (image 67). There are tree-in-bud opacities of the right upper lobe (image 64) which are nonspecific for infectious or inflammatory small airway disease. There are benign calcified nodules in the bilateral lower lobes. No pleural effusion or pneumothorax. Bilateral lower lobe bronchiectasis is noted. There is mild degenerative disease of the spine. Procedure Note Rudy Sauceda MD - 08/08/2018 RESULT: EXAMINATION: CT CHEST WITHOUT CONTRAST, LUNG CANCER SCREENING PROTOCOL Date: 08/08/2018 7:45 AM History: Lung cancer screening Technique: Transaxial computed tomographic images of the chest were obtained without intravenous contrast using a low-dose protocol. Multiplanar coronal and sagittal images were reformatted. Comparison: None Findings: Normal heart size. There are coronary artery calcifications seen. There is thickening or effusion of the pericardium measuring up to 8 mm at the apex. The aorta is nonaneurysmal atherosclerotic calcifications present. The trachea and mainstem bronchi are patent. There are multiple calcified mediastinal and hilar lymph nodes. There is a 4 mm nodule of the right lower lobe (image 85). There is also 4 mm nodule of the inferior right upper lobe (image 67). There are tree-in-bud opacities of the right upper lobe (image 64) which are nonspecific for infectious or inflammatory small airway disease. There are benign calcified nodules in the bilateral lower lobes. No pleural effusion or pneumothorax. Bilateral lower lobe bronchiectasis is noted. There is mild degenerative disease of the spine. IMPRESSION: Lung RADS 2. Benign. Nodules are likely granulomatous or may reflect an infectious or inflammatory process. Low-dose CT in 12 months is recommended.. Electronically signed by: Rudy Sauceda M.D. Jose Juan Madrigal MD IMG CT PROCEDURES Final R esult * Diabetic Eye Exam (06/06/2018) Historical Provider HEALTH MAINTENANCE Final Result from Last 3 Months or Most Recently Relevant to Health Maintenance
--- OUTSIDE RECORDS SUMMARY | 2025-01-11 14:38 | XMS_ITS | Clinical Summary ---
Author Organization [address] lt Address [address] [place] [address] Care Team Providers Care Clip Riveter Name Role Phone Jose Juan Madrigal MD Primary Care Provider [phone] Pedro Monroe MD Unavailable [phone] Caden Nuñez MD Unavailable Luis Barney MD Unavailable [phone] Allergies Active Allergy Reactions Criticality Noted Date [...] 12/06/2023 Assessment & Plan (12/09/2023 10:13 AM SECURITY TRAINER): -2 Medically Stable:CM was notified by Denise from [facility] and Isra Walker [phone] - 12/08: facility acceptance. Pending isolation status recovery - 12/09: isolation removed, pending transport for discharge Dermatophytosis of nail 12/04/2023 Overview (12/04/2023): R HALLUX Closed displaced spiral fracture of shaft of rig ht femur 12/03/2023 Anemia in chronic kidney disease, on chronic daylin lysis 12/03/2023 Assessment & Plan (12/09/2023 10:15 AM SECURITY TRAINER): - Hgb 7.4 at OSH - Hgb trend: 7.4- 7.6- 8.8-8.3 - EBL 300 cc - 12/09: Hgb 10.2 - CBC was monitored, no active signs or symptoms of bleeding, hemodynamically unsupported at discharge Infection due to human metapneumovirus (hMPV) Assessment & Plan (12/09/2023 10:12 AM SECURITY TRAINER): - Positive on RVP on 12/02 - [...] 12/02/2023 Assessment & Plan (12/09/2023 10:14 AM SECURITY TRAINER): - Ortho Trauma consulted - OR 12/03 [...] unspecified 02/02/2022 Diarrhea of presumed infectious origin Complicated UTI (urinary tract infection) 2021 Encephalopathy, unspecified 06/27/2021 Acute and chronic respirator y failure, unspecified whether with hypoxia or hypercapnia 06/27/2021 COVID-19 06/22/2021 Acute hypoxemic respiratory failure 06/22/2021 Dysphagia, oropharyngeal phase 04/11/2021 Assessment & Plan (12/09/2023 10:13 AM SECURITY TRAINER): - Previously documented dysphagia with last LEAD WORKER OF HOUSEKEEPING AND LAUNDRY recommendations of Pureed diet with Honey Thickened liquids (03/2022), unclear if advanced - Concern from nursing that patient may be aspirating - NPO pending LEAD WORKER OF HOUSEKEEPING [employer] LAUNDRY swallow evaluation (will not be able to see patient until 12/05, start D5NS @25 ml/hr with end time in 24 hours) - 1:1 assist with feeding 12/05 Modified Barium Swallow per LEAD WORKER OF HOUSEKEEPING [employer] LAUNDRY, ok to give meds with applesauce prior to evaluation 12/06 Speech Evaluation: Mechanical Soft diet and regular liquids Cardiomegaly 12/23/2020 Diarrhea, unspecified 12/23/2020 Contamination of blood culture 12/21/2020 Disorientation 12/19/2020 JARED (acute kidney injury) ([facility]) 12/19/2020 Assessment & Plan (02/24/2022 6:25 AM [...] (07/22/2019): Added automatically from request for surgery [id number] Cataract (lens) fragments in eye following cataract surgery, bilateral 06/16/2019 Type 2 diabetes mellitus wit h diabetic autonomic (poly)neuropathy 06/16/2019 Hemiplegia and hemiparesis f ollowing unspecified cerebrovascular disease affecting right dominant side 06/16/2019 Neuromuscular dysfunction of bladder, unspecifie d 06/16/2019 Cerebrovascular accident (CVA) ([facility]) 019 Overview (04/21/2019): Added automatically from request for surgery [id number] Assessment & Plan (12/03/2023 4:05 PM SECURITY TRAINER): - Residual dysarthria, R hemiplegia, and hemiparesis requiring Amadou lift Uncontrolled type 2 diabetes mellitus with hyperglycemia ([facility]) 09/09/2018 Assessment & Plan (12/09/2023 10:11 AM SECURITY TRAINER): - Hgb A1c 7.0 - Home medications: [...] (08/02/2018): Added automatically from request for surgery [id number] Osteoarthritis of multiple joints 01/12/2016 Pure hypercholesterolemia 01/12/2016 Assessment & Plan (12/03/2023 4:08 PM SECURITY TRAINER): - Continue home atorvastatin Insomnia 08/10/2011 Peripheral neuropathy 08/10/2011 Hyperlipidemia 11/05/2007 Overview (02/09/2017): Hyperlipidemia, unspecified hyperlipidemia type Assessment & Plan (02/24/2022 6:22 AM CDT): Continue statin Diabetic peripheral neuropathy ([facility]) 006 Overview (02/10/2017): Type 2 diabetes, controlled, [...] disease Assessment & Plan (12/09/2023 10:12 AM SECURITY TRAINER): - Nephrology consulted for inpatient management - ESRD on HD (TTS via LUE AVF) Last outpt iHD on 11/29 - will dialyze on Sunday, 12/03 - current intpt iHD prescription: 400/800, 4h, 3K, 2L UF goal - unknown outpt unit. Will need to call NH in AM to find out dialysis medications and outpt unit location - renal diet when able - renal vitamin daily - renally dose all medications to GFR< 10 - maintain MAP > 65 and Hb > 7 for optimal renal perfusion - 2/3 iHD - Continue dialysis per outpatient desk maker's recommendations Candidemia Bacteremia Chronic anticoagulation Assessment & Plan (12/09/2023 10:14 AM SECURITY TRAINER): #Atrial fibrillation - No rate controlling medications noted - Home Eliquis 2.5 mg BID held, okay to resume when able from a Ortho perspective - Resume at discharge Immunizations Immunization Administration Dates Next Due Influenza, Quadrivalent, Spl it, Preservative Free, Intramuscular 07/30/2018 Influenza, Unspecified 08/18/2020,2017(Deferred: Patient Refused) Surgical History Surgery Date Site/Laterality Comments CATARACT EXTRACTION Right Cataract extraction POLYPECTOMY COLONOSCOPY 02/29/2016 OTHER SURGICAL HISTORY TUBAL LIGATION TUBAL LIGATION H&P Medical History Medical History Date Comments Hypercholesterolemia High choles terol; Comments: [facility] 04/06/2016 - Diabetes mellitus (HCC) Diabetes mellitus; Comments: [facility] 04/06/2016 - Hypertension Hypertension Colon polyp Type 2 diabetes mellitus (HCC) Cataracts, bilateral H&P Stroke (HCC) april 2019 Family History Medical History Relation Name Comments Other Father plane crash; Ca use of : plane crash Alzheimer's disease Mother Alzheime r's disease; Relation Name Status Comments Father Mother Social History Tobacco Use Types Packs/Day Years Used Date Smoking Tobacco: Former Cigarettes 3 25 0 02/16/1989 - 02/16/2014 Smokeless Tobacco: Never Tobacco Cessation:Counseling Given: No Alcohol Use Standard Drinks/Week Comments Not Currently 0 (1 standard drink = 0.6 oz pur e alcohol) [facility] Utilities Answer Date Recorded In the past 12 months has M2[employer], gas, oil, or water [employer] threatened to shut off services in your [...] week 12/04/2023 How often do you attend [facility] or religion services? Never 12/04/2023 Do you belong to any clubs o r organizations such as cheondoism groups, unions, fraternal or athletic groups, or [...] place to sleep or slept in a senior care (including now)? No 12/04/2023 Personal Safety Answer [...] on file Legal Sex Female 4:06 AM SECURITY TRAINER Gender Identity Female 01/17/2024 1:34 PM CDT Sexual Orientation Straight 01/17/2024 1: 34 PM CDT Obstetrics History Para Term AB IAB SAB Ectopic Multiple Livin g Live Births 5 5 5 Date Outcome GA Total Labor Labor/3rd Weight Sex Type Anes PTL Pamela A1 A5 Name Clin Term Term Term Term Term Last Filed Vital Signs Vital Sign Reading Time Taken Comments Blood Pressure 123/47 12/09/2023 11:58 AM SECURITY TRAINER Pulse 72 12/09/2023 11:58 AM SECURITY TRAINER Temperature 36.9 C (98.4 F) 12/09/2023 11:58 AM SECURITY TRAINER Respiratory Rate 20 12/09/2023 11:58 AM SECURITY TRAINER Oxygen Saturation 99% 12/09/2023 11:58 AM SECURITY TRAINER Inhaled Oxygen Concentration - - Weight 81.7 kg (180 lb 1.9 oz) 12/08/2023 4:15 A M SECURITY TRAINER Height 160 cm (5' 3 ) 12/02/2023 6:44 PM SECURITY TRAINER Body Mass Index 31.91 12/02/2023 6:44 PM SECURITY TRAINER Plan of Treatment Health Maintenance Due Date Last Done Comments Albumin Creatinine Ratio, Urine 1955 Osteoporosis Screening-Bone Density Scan 1955 DTaP/Tdap/Td Vaccine (1 - Tdap) 11/06/2013 4 Zoster Vaccine (2 of 3) 12/31/2013 11/05/2013 Well Visit 65+ 2018 Dilated Eye Exam 06/06/2019 06/06/2018, 04/19/2018 Breast Cancer Screening-Mammogram 08/08/2019 08/08/2018, 02/08/2016, 02/08/2016, Additional history exists Lung Cancer Screening 08/08/2019 08/08/2018 Foot Exam 06/05/2020 06/05/2019, 07/30/2018 Lipid Panel 06/23/2022 06/23/2021, 04/05, 07/30/2018, Additional history exists Depression Screening 03/11/2023 03/11/2022, 02/23/2022, 01/28/2022, Additional history exists Hemoglobin A1C 06/02/2024 12/03/2023, 11/06, 06/23/2021, Additional history exists Covid-19 Vaccine (2023- 5 season) 2024 09/06/2023, 10/10/2021, 12/10/2020, Additional history exists Influenza Vaccine (#1) 2024 , 07/30/2018, 08/24/2011 Fall Risk Assessment 12/09/2024 12/09/2023, 07/30/20 18 eGFR 12/09/2024 12/09/2023, 020 01/2024, 12/06/2023, Additional history exists Colon Cancer Screening-Colonoscopy 09/05/2028 09/05/2018 Colon Cancer Screening-CT Colonography Discontinued 09/05/2018 Colon Cancer Screening-DNA Stool Discontinued 09/05/20 18 Colon Cancer Screening-FIT Discontinued 09/05/2018 Colon Cancer Screening-Sigmoidoscopy Discontinued 09/05/2018 Hepatitis C Screening Completed 03/06/2022 Pneumococcal vaccine 65+ Completed 022, 11/04/2021, 08/24/2011 Hepatitis B Screening Completed 12/04/2023 Goals Goal Patient Goal Type Associated Problems Recent Progress Patient-Stated? Author ASHLY General Goal - Patient is knowledgeable about condition when worsening and how to respond ACO Care Management Tonya Cortez, RN Note: Problem: Knowledge deficit related to signs and symptoms of worsening condition Interventions: - Assess patient's level of understanding related to their condition(s), specific medications and self-management of their chronic conditions. - Send educational materials to patient related to their chronic condition, including signs and symptoms, self-management actions, and serious symptoms that require urgent medical intervention. - Assist patient/provider in developing an action plan for symptom management. - Review with patient weekly: s/s worsening condition, self-management actions to take, when to call CM or provider. ASHLY General Goal - Patient / caregiver verbalizes lifestyle changes necessary to meet self-care needs and executes self-care activities to utmost capability ACO Care Management Tonya Cortez, RN Note: Problem: At Risk for Self Care Deficit Interventions: - Assess patient's level of dependence on others. Guide the patent in accepting the needed amount of dependence. - Contact current caregiver and assess their involvement with patient and level of assistance provided. - Assess appropriateness for Home Health. Start referral process if skilled need is present. - Encourage independent ADL's as appropriate. Ensure patient has the appropriate tools at home to be as independent as possible. - Provide fall prevention education to patient and caregiver. - Evaluate need for assistive devices. - Refer to SW if appropriate and patient is agreeable. Medical Devices Implanted Type Area Public Improvement Inspector Device Identifier Shelf Expiration Date Model / Serial / Lot [employer] Nail Intramedullary Femoral Retrograde T2 Alpha [id number] Titanium 2339-1226s - [id number] Implanted:Qty: 1 on 12/03/2023 by Zaid Bustamante MD at [facility] Nail Right: Femur [employer] 2339-122 6S / / Synthes Lcp Combi 370mm 18 Hole 4 Column Thread Variable Angle Condylar 02.124.418 - [id number] Implanted:Qty: 1 on 12/03/2023 by Zaid Bustamante MD at [facility] Plate Right: Femur Synthes I 02.124.4 18 / / [employer] Screw Bone 5mm 70mm Lock Strl 2361-2170s - [id number] Implanted:Qty: 1 on 12/03/2023 by Zaid Bustamante MD at [facility] Screw Right: Femur [employer] [id number] 08/04/2033 2361-507 0S / / [id number] [employer] Screw Bone 5mm 60mm Lock Strl 2361-5060s - [id number] Implanted:Qty: 1 on 12/03/2023 by Zaid Bustamante MD at [facility] Screw Right: Femur [employer] [id number] 07/05/2033 2361-506 0S / / [id number] [employer] Screw Bone 5mm 70mm Lock Strl 2361-5070s - [id number] Implanted:Qty: 1 on 12/03/2023 by Zaid Bustamante MD at [facility] Screw Right: Femur [employer] [id number] 11/04/2029 2361-507 0S / / [id number] [employer] Screw Bone 5mm 65mm Lock Strl 2361-5065s - [id number] Implanted:Qty: 1 on 12/03/2023 by Zaid Bustamante MD at [facility] Screw Right: Femur [employer] [id number] 11/04/2029 2361-506 5S / / [id number] Synthes 4.5mm 8mm 32mm Self Tap Large Hexagonal Socket Cortex Screw Bone 214.832 - [id number] Implanted:Qty: 1 on 12/03/2023 by Zaid Bustamante MD at [facility] Screw Right: Femur Synthes I 214.832 / / [employer] Sophia T2 3mm 285mm Retrograde Supracondylar Wire Fixation 1806-0050s - [id number] Implanted:Qty: 1 on 12/03/2023 by Zaid Bustamante MD at [facility] Wire Right: Femur [employer] [id number] 01/03/2028 1806-005 0S / / [id number] [employer] Duraflow Embosafe 15.5fr 24cm Basic 2 Lumen Kit Catheter [id number] - [id number] Implanted:Qty: 1 on 03/07/2022 by Willian Hsieh MD at [facility] Right: Chest [employer] 04/04/2024 [id number] / / [id number] [employer] Duraflow Embosafe 15.5fr 24cm Basic 2 Lumen Kit Catheter [id number] - [id number] Implanted:Qty: 1 on 03/29/2022 by Willian Hsieh MD at [facility] Right: Jugular [employer] 12/05/2024 [id number] / / [id number] Description:Internal jugular Synthes 4.5mm 8mm 85mm Self Tap Large Hexagonal Socket Cortex Screw Bone 214.885 - [id number] Implanted:Qty: 2 on 12/03/2023 by Zaid Bustamante MD at [facility] Right: Femur Synthes I 214.885 / / [employer] Screw Bone 5mm 50mm Lock Strl 2361-5050s - [id number] Implanted:Qty: 1 on 12/03/2023 by Zaid Bustamante MD at [facility] Right: Femur [employer] 2361-505 0S / / [employer] Screw Bone 5mm 35mm T2 Alpha Lock Strl 2360-5035s - [id number] Implanted:Qty: 1 on 12/03/2023 by Zaid Bustamante MD at [facility] Right: Femur [employer] 2360-503 5S / / [employer] Screw Bone 5mm 35mm T2 Alpha Lock Strl 2360-5035s - [id number] Implanted:Qty: 1 on 12/03/2023 by Zaid Bustamante MD at [facility] Right: Femur [employer] 2360-503 5S / / Synthes 5mm 65mm Variable Angle Self Tap Lock Stardrive Condylar T25 02.231.265 - [id number] Implanted:Qty: 2 on 12/03/2023 by Zaid Bustamante MD at [facility] Right: Femur Synthes I 02.231.2 65 / / Synthes 5mm 60mm Variable Angle Self Tap Lock [employer] Condylar T25 02.231.260 - [id number] Implanted:Qty: 1 on 12/03/2023 by Zaid Bustamante MD at [facility] Right: Femur Synthes I 02.231.2 60 / / Synthes 5mm 32mm Variable Angle Self Tap Lock [employer] Condylar T25 02.231.232 - [id number] Implanted:Qty: 2 on 12/03/2023 by Ziad Bustamante MD at [facility] Right: Femur Synthes I 02.231.2 32 / / Synthes 5mm 34mm Variable Angle Self Tap Lock [employer] Condylar T25 231.234 - [id number] Implanted:Qty: 1 on 12/03/2023 by Zaid Bustamante MD at [facility] Right: Femur Synthes I 231.2 34 / / Procedures Procedure Name Priority Date/Time Associated Diagnosis Comments EGFR Timed 12/09/2023 4:53 AM SECURITY TRAINER HEMOGLOBIN A1C STAT 12/03/2023 4:38 AM SECURITY TRAINER HEPATITIS PANEL, ACUTE STAT 03/06/2022 9:15 AM [...] Relevant to Health Maintenance Results * (ABNORMAL) eGFR (12/09/2023 4:53 AM SECURITY TRAINER) eGFR 14(L) >=60 mL/min/1. 73 m2 [facility] Comment: Interpretive Data Reference Interval Normal [...] Inclusion of Race in Diagnosing Kidney Disease, AYUSHN 2020). The CKD-EPI equation should not be used for patients with unstable renal function and has not been validated in children and those over 70. Current interpretive data was last reviewed 2021. Blood 12/09/2023 4:53 AM SECURITY TRAINER 12/09/2023 6:24 AM SECURITY TRAINER Minesh Emanuel MD LAB BLOOD ORDERABLES Rashida l Result Performing Organization Address [facility] de Phone Number [facility] [place] [address] * (ABNORMAL) Hemoglobin A1c (12/03/2023 4:38 AM SECURITY TRAINER) Pathologist [facility] Hgb A1C 7.0(H) 4.0 - 5.6 % [facility] Estimated Average Glucose 154 mg/dL [facility] Comment: The ADA recommends reporting an estimated Average Glucose (eAG) with all Hemoglobin A1c results using the equation derived from a study of 507 normal and diabetic adults. Minority populations were underrepresented and children were not included. (Diabetes Care 2020; 43(S1): S66-S76). The eAG is not equivalent to a fasting glucose. Blood 12/03/2023 4:38 AM SECURITY TRAINER 12/03/2023 4:56 AM SECURITY TRAINER Minesh Emanuel MD LAB BLOOD ORDERABLES Rashida l Result Performing Organization Address [facility] de Phone Number [facility] Department [place] [address] * Hepatitis panel, acute (03/06/2022 9:15 AM CDT) Pathologist [facility] Hep A IgM Nonreactive Nonreactive [facility] Comment: Interpretive Data: If Hep A IgM Ab is reported as Equivocal, a new sample should be drawn in two weeks for testing. Current interpretive data was last revised on 20. Testing performed by: [facility], [address] [place] [address], [place]., [address] Hep B core IgM Nonreactive Nonreactive C [facility] ([place]) Comment: Interpretive Data If HepB Core IgM Ab is reported as Equivocal, a new sample should be drawn in two weeks for testing. Current interpretive data was last revised on 20. Testing performed by: [address] [address] Hep C Ab Nonreactive Nonreactive [facility] [...] last revised on 2020. Testing performed by: [facility], [address] [place] [address]., [address] HepBsAg Nonreactive Nonreactive [facility] ([place]) Comment:Testing performed by : [facility], [address] [place] [address]., [address] Blood 03/06/2022 9:15 AM CDT 03/06/2022 10:43 AM CDT Caden Nuñez MD LAB MICROBIOLOGY - GENERAL OR DERABLES Final Result [facility] ([place]) 1 [facility] [place] [address] * (ABNORMAL) Lipid panel (06/23/2021 9:32 AM [...] 2018. Non-HDL Cholesterol 91 mg/dL [facility]) Comment: Interpretive Data Ages < or = [...] on 2018. Chol/HDL ratio 4 [facility]O [facility] ([facility]) Blood 06/23/2021 9:32 AM CDT 06/23/2021 9:35 AM CDT Evert Graves MD LAB BLOOD ORDERABL ES Final Result [facility] ([facility]) 1 [facility] [place] [address] * COLONOSCOPY (09/05/2018 9:13 AM CDT) Anatomical Region Laterality Modality Other Narrative Procedure Note Esteban Clemente MD - 09/05/2018 9:13 AM CDT [facility] Patient Name: Nora El Procedure Date: 09/05/2018 9:13 AM Date of : 1955 Admit Type: Outpatient Age: 63 Gender: Female Attending MD: Esteban Clemente M.D. Room: [facility] ENDOSCOPY ROOM 1 Note Status: Finalized [...] scope was passed under direct vision.The Colonoscope [id number] was introducedthrough the anus and advanced to [...] malignant neoplasm of colon CPT copyright 2017 [employer]. All rights reserved. The codes documented in this report are preliminary and upon visual merchandising assistant reviewmay be revised to meet current compliance requirements. Recognized by the [employer] for promoting quality [...] is seen within either breast on mammogram. Jose Juan Madrigal MD IMG MAMMO PROCEDURES [...] Most Recently Relevant to Health Maintenance Insurance MEDICARE IDPA IDPA MEDICARE HUMANA CHOICE MEDICARE PPO [address] MEDICARE IDPA Advance Directives For more information, please contact: [phone] Documents on File Type Date Recorded Patient Finished Yarn Examiner Expl anation ADVANCE DIRECTIVE 01/30/2023 1:58 PM DNR ADVANCE DIRECTIVE 12/19/2020 1:19 PM DNR ADVANCE DIRECTIVE 10/21/2020 2:48 PM DNR ADVANCE DIRECTIVE 04/18/2019 3:07 PM POWER OF PAINT TRIMMER PIPE BOWLS-MEDICAL ADVANCE DIRECTIVE 04/17/2019 POWER OF A TTORNEY-MEDICAL * LIMITED - No CPR (Latest Code Status on File) Date Activated Date Inactivated Comments 12/03/2023 11:33 AM 12/09/2023 6:37 PM * LIMITED - No CPR Date Activated Date Inactivated Comments 12/03/2023 11:33 AM 12/03/2023 11:33 AM Question Answer Comments Provide aggressive medical m anagement before a full cardiopulmonary arrest occurs. Use antibiotics, IV Fluids, and medical treatment unless specifically selected below: No intubation * LIMITED - No CPR Date Activated Date Inactivated Comments 03/29/2022 9:36 AM 03/31/2022 7:40 PM * Full Code Date Activated Date Inactivated Comments 03/26/2022 7:48 PM 03/29/2022 9:36 AM * LIMITED - No CPR Date Activated Date Inactivated Comments 03/12/2022 11:38 AM 03/19/2022 3:10 AM Question Answer Comments Provide aggressive medical m anagement before a full cardiopulmonary arrest occurs. Use antibiotics, IV Fluids, and medical treatment unless specifically selected below: No intubation Care Teams Clip Riveter Relationship Specialty Start Date End Date Jose Juan Madrigal MD [address] [place] [address] PCP - General 02/02/17 Pedro Monroe MD [address] [place] [address] Consulting Physician Physical Medicine and Rehabilitation 05/21/19 Caden Nuñez MD [address] [place] [address] Consulting Physician Nephrology 03/09/22 Luis Barney MD [address] [address] Consulting Physician Infectious Diseases 03/16/22
--- OUTSIDE RECORDS SUMMARY | 2025-01-11 14:38 | XMS_ITS | Referral Summary ---
Author Organization [address] lto Address [address] [address] Care Team Providers Care Extension Course Coordinator Name Role Phone Jose Juan Madrigal MD Primary Care Provider [phone] Pedro Monroe MD Unavailable [phone] Caden Nuñez MD Unavailable [phone] Luis Barney MD Unavailable [phone] Allergies Active Allergy Reactions Criticality Noted Date [...] 12/06/2023 Assessment & Plan (12/09/2023 10:13 AM PROFESSIONAL BUILDER): -2 Medically Stable:CM was notified by Denise from [facility] and Isra Walker [phone] - 12/08: facility acceptance. Pending isolation status recovery - 12/09: isolation removed, pending transport for discharge Dermatophytosis of nail 12/04/2023 Overview (12/04/2023): R HALLUX Closed displaced spiral fracture of shaft of rig ht femur 12/03/2023 Anemia in chronic kidney disease, on chronic daylin lysis 12/03/2023 Assessment & Plan (12/09/2023 10:15 AM PROFESSIONAL BUILDER): - Hgb 7.4 at OSH - Hgb trend: 7.4- 7.6- 8.8-8.3 - EBL 300 cc - 12/09: Hgb 10.2 - CBC was monitored, no active signs or symptoms of bleeding, hemodynamically unsupported at discharge Infection due to human metapneumovirus (hMPV) Assessment & Plan (12/09/2023 10:12 AM PROFESSIONAL BUILDER): - Positive on RVP on 12/02 - [...] 12/02/2023 Assessment & Plan (12/09/2023 10:14 AM PROFESSIONAL BUILDER): - Ortho Trauma consulted - OR 12/03 [...] 04/11/2021 Assessment & Plan (12/09/2023 10:13 AM PROFESSIONAL BUILDER): - Previously documented dysphagia with last [employer] recommendations of Pureed diet with Honey Thickened liquids (03/2022), unclear if advanced - Concern from nursing that patient may be aspirating - NPO pending [employer] swallow evaluation (will not be able to see patient until 12/05, start D5NS @25 ml/hr with end time in 24 hours) - 1:1 assist with feeding 12/05 Modified Barium Swallow per [employer], ok to give meds with applesauce prior to evaluation 12/06 Speech Evaluation: Mechanical Soft diet and regular liquids Cardiomegaly 12/23/2020 Diarrhea, unspecified 12/23/2020 Contamination of blood culture 12/21/2020 Disorientation 12/19/2020 JARED (acute kidney injury) ([facility]) 12/19/2020 Assessment & Plan (02/24/2022 6:25 [...] (07/22/2019): Added automatically from request for surgery [id number] Cataract (lens) fragments in eye following cataract surgery, bilateral 06/16/2019 Type 2 diabetes mellitus wit h diabetic autonomic (poly)neuropathy 06/16/2019 Hemiplegia and hemiparesis f ollowing unspecified cerebrovascular disease affecting right dominant side 06/16/2019 Neuromuscular dysfunction of bladder, unspecifie d 06/16/2019 Cerebrovascular accident (CVA) ([facility]) 019 Overview (04/21/2019): Added automatically from request for surgery [id number] Assessment & Plan (12/03/2023 4:05 PM PROFESSIONAL BUILDER): - Residual dysarthria, R hemiplegia, and hemiparesis requiring Amadou lift Uncontrolled type 2 diabetes mellitus with hyperglycemia ([facility]) 09/09/2018 Assessment & Plan (12/09/2023 10:11 AM PROFESSIONAL BUILDER): - Hgb A1c 7.0 - Home medications: [...] (08/02/2018): Added automatically from request for surgery [id number] Osteoarthritis of multiple joints 01/12/2016 Pure hypercholesterolemia 01/12/2016 Assessment & Plan (12/03/2023 4:08 PM PROFESSIONAL BUILDER): - Continue home atorvastatin Insomnia 08/10/2011 Peripheral neuropathy 08/10/2011 Hyperlipidemia 11/05/2007 Overview (02/09/2017): Hyperlipidemia, unspecified hyperlipidemia type Assessment & Plan (02/24/2022 6:22 AM CDT): Continue statin Diabetic peripheral neuropathy ([facility]) 006 Overview (02/10/2017): Type 2 diabetes, [...] disease Assessment & Plan (12/09/2023 10:12 AM PROFESSIONAL BUILDER): - Nephrology consulted for inpatient management - [...] 2/3 iHD - Continue dialysis per outpatient floor covering layer's recommendations Candidemia Bacteremia Chronic anticoagulation Assessment & Plan (12/09/2023 10:14 AM PROFESSIONAL BUILDER): #Atrial fibrillation - No rate controlling medications [...] drink = 0.6 oz pur e alcohol) [facility] [employer] Answer Date Recorded In the past 12 months has [employer], gas, oil, or water [employer] threatened to shut off services in your [...] often do you attend chur ch or hindu services? Never 12/04/2023 Do you belong to any clubs o r organizations such as advent groups, unions, fraternal or athletic groups, or [...] place to sleep or slept in a nursing home (including now)? No 12/04/2023 Personal Safety Answer [...] on file Legal Sex Female 4:06 AM PROFESSIONAL BUILDER Gender Identity Female 01/17/2024 1:34 PM CDT Sexual Orientation Straight 01/17/2024 1: 34 PM CDT Last Filed Vital Signs Vital Sign Reading Time Taken Comments Blood Pressure 123/47 12/09/2023 11:58 AM PROFESSIONAL BUILDER Pulse 72 12/09/2023 11:58 AM PROFESSIONAL BUILDER Temperature 36.9 C (98.4 F) 12/09/2023 11:58 AM PROFESSIONAL BUILDER Respiratory Rate 20 12/09/2023 11:58 AM PROFESSIONAL BUILDER Oxygen Saturation 99% 12/09/2023 11:58 AM PROFESSIONAL BUILDER Inhaled Oxygen Concentration - - Weight 81.7 kg (180 lb 1.9 oz) 12/08/2023 4:15 A M PROFESSIONAL BUILDER Height 160 cm (5' 3 ) 12/02/2023 6:44 PM PROFESSIONAL BUILDER Body Mass Index 31.91 12/02/2023 6:44 PM PROFESSIONAL BUILDER Plan of Treatment Not on file Goals Goal Patient Goal Type Associated Problems [...] utmost capability ACO Care Management Tonya Cortez, JESSICA Note: Problem: At Risk for Self Care [...] is agreeable. Medical Devices Implanted Type Area Home Health Travel Ot Device Identifier Shelf Expiration Date Model / Serial / Lot [employer] Nail Intramedullary Femoral Retrograde T2 Alpha [id number] Titanium 2339-1226s - [id number] Implanted:Qty: 1 on 12/03/2023 by Zaid Bustamante MD at [facility] Nail Right: Femur [employer] 2339-122 6S / / Synthes Lcp Combi 370mm 18 Hole 4 Column Thread Variable Angle Condylar 02.124.418 - [id number] Implanted:Qty: 1 on 12/03/2023 by Zaid Bustamante MD at [facility] Plate Right: Femur Synthes I 02.124.4 18 / / [employer] Screw Bone 5mm 70mm Lock Strl 2361-5070s - [id number] Implanted:Qty: 1 on 12/03/2023 by Zaid Bustamante MD at [facility] Screw Right: Femur [employer] [id number] 08/04/2033 2361-507 0S / / [id number] [employer] Screw Bone 5mm 60mm Lock Strl 2361-5060s - [id number] Implanted:Qty: 1 on 12/03/2023 by Zaid Bustamante MD at [facility] Screw Right: Femur [employer] [id number] 07/05/2033 2361-506 0S / / [id number] [employer] Screw Bone 5mm 70mm Lock Strl 2361-5070s - [id number] Implanted:Qty: 1 on 12/03/2023 by Zaid Bustamante MD at [facility] Screw Right: Femur [employer] [id number] 11/04/2029 2361-507 0S / / [id number] [employer] Screw Bone 5mm 65mm Lock Strl 2361-5065s - [id number] Implanted:Qty: 1 on 12/03/2023 by Zaid Bustamante MD at [facility] Screw Right: Femur [employer] [id number] 11/04/2029 2361-506 5S / / [id number] Synthes 4.5mm 8mm 32mm Self Tap Large Hexagonal Socket Cortex Screw Bone 214.832 - [id number] Implanted:Qty: 1 on 12/03/2023 by Zaid Bustamante MD at [facility] Screw Right: Femur Synthes I 214.832 / / [employer] Sophia T2 3mm 285mm Retrograde Supracondylar Wire Fixation 1806-0050s - [id number] Implanted:Qty: 1 on 12/03/2023 by Zaid Bustamante MD at [facility] Wire Right: Femur [employer] [id number] 01/03/2028 1806-005 0S / / [id number] [employer] Dur[employer]low [employer] 15.5fr 24cm Basic 2 Lumen Kit Catheter [id number] - [id number] Implanted:Qty: 1 on 03/07/2022 by Willian Hsieh MD at [facility] Right: Chest [employer] 04/04/2024 [id number] / / [id number] [employer] Embosafe 15.5fr 24cm Basic 2 Lumen Kit Catheter [id number] - [id number] Implanted:Qty: 1 on 03/29/2022 by Willian Hsieh MD at [facility] Right: Jugular [employer] 12/05/2024 [id number] / / [id number] Description:Internal jugular Synthes 4.5mm 8mm 85mm Self Tap Large Hexagonal Socket Cortex Screw Bone 214.885 - [id number] Implanted:Qty: 2 on 12/03/2023 by Zaid Bustamante MD at [facility] Right: Femur Synthes I 214.885 / / [employer] Screw Bone 5mm 50mm Lock Strl 2361-7110s - [id number] Implanted:Qty: 1 on 12/03/2023 by Zaid Bustamante MD at [facility] Right: Femur [employer] 2361-505 0S / / [employer] Screw Bone 5mm 35mm T2 Alpha Lock Strl 2360-5735s - [id number] Implanted:Qty: 1 on 12/03/2023 by Zaid Bustamante MD at [facility] Right: Femur [employer] 2360-503 5S / / [employer] Screw Bone 5mm 35mm T2 Alpha Lock Strl 2360-5035s - [id number] Implanted:Qty: 1 on 12/03/2023 by Zaid Bustamante MD at [facility] Right: Femur [employer] 2360-503 5S / / Synthes 5mm 65mm Variable Angle Self Tap Lock Stardrive Condylar T25 02.231.265 - [id number] Implanted:Qty: 2 on 12/03/2023 by Zaid Bustamante MD at [facility] Right: Femur Synthes I 02.231.2 65 / / Synthes 5mm 60mm Variable Angle Self Tap Lock [employer] Condylar T25 02.231.260 - [id number] Implanted:Qty: 1 on 12/03/2023 by Zaid Bustamante MD at [facility] Right: Femur [employer]ynthes I 02.231.2 60 / / Synthes 5mm 32mm Variable Angle Self Tap Lock [employer] Condylar T25 02.231.232 - [id number] Implanted:Qty: 2 on 12/03/2023 by Zaid Bustamante MD at [facility] Right: Femur Synthes I 02.231.2 32 / / Synthes 5mm 34mm Variable Angle Self Tap Lock [employer] Condylar T25 02.231.234 - [id number] Implanted:Qty: 1 on 12/03/2023 by Zaid Bustamante MD at [facility] Right: Femur Synthes I 02.231.2 34 / / Procedures Procedure Name Priority Date/Time Associated Diagnosis Comments EGFR Timed 12/09/2023 4:53 AM PROFESSIONAL BUILDER HEMOGLOBIN A1C STAT 12/03/2023 4:38 AM PROFESSIONAL BUILDER HEPATITIS PANEL, ACUTE STAT 03/06/2022 9:15 AM [...] Results * (ABNORMAL) eGFR (12/09/2023 4:53 AM PROFESSIONAL BUILDER) eGFR 14(L) >=60 mL/min/1. 73 m2 TRACIE MORFIN Comment: Interpretive Data Reference Interval Normal >/= [...] last reviewed 2021. Blood 12/09/2023 4:53 AM PROFESSIONAL BUILDER 12/09/2023 6:24 AM PROFESSIONAL BUILDER us Minesh Emanuel MD LAB BLOOD ORDERABLES Rashida greer Result TRACIE WADE [facility] [place] [address] * (ABNORMAL) Hemoglobin A1c (12/03/2023 4:38 AM PROFESSIONAL BUILDER) Hgb A1C 7.0(H) 4.0 - 5.6 % [facility] Estimated Average Glucose 154 mg/dL [facility] Comment: The ADA recommends reporting an estimated Average Glucose (eAG) with all Hemoglobin A1c results using the equation derived from a study of 507 normal and diabetic adults. Minority populations were underrepresented and children were not included. (Diabetes Care 2020; 43(S1): S66-S76). The eAG is not equivalent to a fasting glucose. Blood 12/03/2023 4:38 AM PROFESSIONAL BUILDER 12/03/2023 4:56 AM PROFESSIONAL BUILDER us Minesh Emanuel MD LAB BLOOD ORDERABLES Rashida greer Result [facility] [place] [address] * Hepatitis panel, acute (03/06/2022 9:15 AM CDT) Pathologist [facility] Hep A IgM Nonreactive Nonreactive TRACIE MONREAL (SRAVANTHI) Comment: Interpretive Data: If Hep A IgM Ab is reported as Equivocal, a new sample should be drawn in two weeks for testing. Current interpretive data was last revised on 20. Testing performed by: [facility], [address] [place] [address]., [id number] Hep B core IgM Nonreactive Nonreactive C JASSI MONREAL (SRAVANTHI) Comment: Interpretive Data If HepB Core IgM Ab is reported as Equivocal, a new sample should be drawn in two weeks for testing. Current interpretive data was last revised on 20. Testing performed by: [facility], [address] [place] [address]., [id number] Hep C Ab Nonreactive Nonreactive [facility] (SRAVANTHI) Comment: Interpretive Data Nonreactive: Antibodies to [...] last revised on 2020. Testing performed by: [facility], [address] [place] [address], [place]., [address] HepBsAg Nonreactive Nonreactive TRACIE HURTADO) Comment:Testing performed by : [facility], [address] [place] [address]., [id number] Blood 03/06/2022 9:15 AM CDT 03/06/2022 10:43 AM CDT us Caden Nuñez MD LAB MICROBIOLOGY - GENERAL OR DERABLES Final Result TRACIE MONREAL (SRAVANTHI) [address] [facility] Department of Laboratories [place], [place] [id number] * (ABNORMAL) Lipid panel (06/23/2021 9:32 AM [...] last revised on 2018. Chol/HDL ratio 4 ACACIANE Rk MONREAL (SRAVANTHI) Blood 06/23/2021 9:32 AM CDT 06/23/2021 9:35 AM CDT us Evert Graves MD LAB BLOOD ORDERABL ES Final Result TRACIE MONREAL SRAVANTHI 1 [facility] Department of Laboratories [place], [place] [id number] * COLONOSCOPY (09/05/2018 9:13 AM CDT) Anatomical Region Laterality Modality Other Narrative Procedure Note Esteban Clemente MD - 09/05/2018 9:13 AM CDT [facility] Patient Name: Nora El Procedure Date: 09/05/2018 9:13 AM Date of : 1955 Admit Type: Outpatient Age: 63 Gender: Female Attending MD: Esteban Clemente M.D. Room: [facility] RO[facility] 1 Note Status: Finalized Procedure: [...] scope was passed under direct vision.The Colonoscope [id number] was introducedthrough the anus and advanced to [...] malignant neoplasm of colon CPT copyright 2017 [employer]. All rights reserved. The codes documented in this report are preliminary and upon talent advisor reviewmay be revised to meet current compliance requirements. Recognized by the [employer] for promoting quality in endoscopy us Esteban Clemente MD ENDOSCOPY PROCEDURES Final Re [...] Relevant to Health Maintenance Insurance MEDICARE IDPA IDCT MEDICARE HUMANA CHOICE MEDICARE PPO IDPA MEDICARE IDPA Advance Directives For more information, please contact: [phone] Documents on File Type Date Recorded Patient Qualification Engineer Expl anation ADVANCE DIRECTIVE 01/30/2023 1:58 PM DNR ADVANCE DIRECTIVE 12/19/2020 1:19 PM DNR ADVANCE DIRECTIVE 10/21/2020 2:48 PM DNR ADVANCE DIRECTIVE 04/18/2019 3:07 PM POWER OF LICENSED EMBALMER-MEDICAL ADVANCE DIRECTIVE 04/17/2019 POWER OF A TTORNEY-MEDICAL [...] specifically selected below: No intubation Care Teams Extension Course Coordinator Relationship Specialty Start Date End Date Jose uJan Madrigal MD [address] [place] [address] PCP - General 02/02/17 Pedro Monroe MD [address] [place] [address] Consulting Physician Physical Medicine and Rehabilitation 05/21/19 Caden Nuñez MD [address] [place] [address] [place] [address] Consulting Physician Nephrology 03/09/22 Luis Barney MD [address] [facility] [address] [place] [address] Consulting Physician Infectious Diseases 03/16/22
[2025-01-11 15:03] LABS: Basophils Percent Auto 0.6 % (0.2-1.2); Eosinophils Absolute Auto 0.2 K/mm3 (0-0.3); Eosinophils Percent Auto 2.5 % (0-4.4); Hematocrit 36.4 % (37.0-47.0); Hemoglobin 11.8 g/dL (12.0-15.0); Immature Granulocyte Absolute 0.02 K/mm3 (0.00-0.031); Immature Granulocyte Percent A 0.3 % (0-0.5); Lymphocytes Absolute Auto 2.83 K/mm3 (0.9-3.2); Lymphocytes Percent Auto 41.1 % (18.3-44.2); Mean Corpuscular HGB Conc 32.4 g/dl (32-36); Mean Corpuscular Hemoglobin 32.2 pg (26-34); Mean Corpuscular Volume 99.5 fl (80-100); Mean Platelet Volume 10.8 fl (7.4-10.4); Monocytes Absolute Auto 0.7 K/mm3 (0.1-0.6); Neutrophils Absolute Auto 3.1 K/mm3 (1.3-6.7); Neutrophils Percent Auto 45.5 % (45.5-73.1); Platelet Count Result 139 k/mm3 (150-375); Red Blood Count 3.66 M/mm3 (4.2-5.4); Red Cell Distribution Width 13.6 % (11.5-14.5); White Blood Count 6.9 K/mm3 (4.5-10.0)
[2025-01-11 15:13] LABS: Alanine Aminotransferase 19 U/L (6-35); Albumin Level 3.8 g/dL (3.5-5.1); Alkaline Phosphatase 106 U/L (38-126); Anion Gap 10 mmol/L (4-12); Aspartate Amino Transferase 23 U/L (14-36); Bilirubin,Total 0.6 mg/dL (0.2-1.3); Blood Urea Nitrogen 43 mg/dL (7-17); Calcium 8.8 mg/dL (8.4-10.2); Carbon Dioxide 34 mmol/L (22-30); Chloride 97 mmol/L (98-107); Estimated CRCL calculation 10 ml/min; Estimated Glomerular Filt Rate 8; Glucose 162 mg/dL (65-110); Potassium 3.7 mmol/L (3.4-5.0); Sodium 141 mmol/L (137-145)
[2025-01-11 15:14] LABS: INR 1.2; Prothrombin Time 15.9 Seconds (11.1-14.7)
[2025-01-11 15:15] LABS: Partial Thromboplastin Time 40.4 Seconds (22.3-36.8)
[2025-01-11] MEDS: IPRATROPIUM BR 0.02% INH SOLN 0.5 MG/2.5 ML VIAL 1 MG INHALATION (15:24)
[2025-01-11] MEDS: ALBUTEROL SULFATE NEB 2.5 MG/3 ML INH 10 MG INHALATION (15:24)
[2025-01-11 15:39] LABS: Influenza A QL RT-PCR Negative (Negative); Influenza B QL RT-PCR Negative (Negative); RSV RNA, RT-PCR Positive (Negative); SARS-CoV-2 RNA PCR Negative (Negative)
[2025-01-11] MEDS: methylPREDNISolone SOD SUCC 125 MG VIAL IV PUSH (16:57)
== END 2025-01-11 18:19 ==
PROVIDERS: Emergency Provider Physician Assistant; PCP Internal Medicine
DX: J45.901 Unspecified asthma with (acute) exacerbation (principal); J44.89 Other specified chronic obstructive pulmonary disease; B97.4 Respiratory syncytial virus as the cause of diseases classified elsewhere; Z20.822 Contact with and (suspected) exposure to COVID-19; N18.6 End stage renal disease; Z99.2 Dependence on renal dialysis; Z86.73 Personal history of transient ischemic attack (TIA), and cerebral infarction without residual deficits
CPT/HCPCS: 36415; 71045; 80053; 85025; 85610; 85730; 87637; 93005; 94640; 96374; 99284; J2919